=== PATIENT | female | born 1965 | race Hispanic/Latino ===

== ENCOUNTER 2017-06-28 22:41 | Emergency (ER) | payer MEDICAID, OTHER ==
[2017-06-28 22:45] VITALS: BP 151/106; PULSE 105; RESP 17; TEMP 98.2; O2SAT 96
--- NOTE | 2017-06-28 22:51 | ED PDOC ---
HPI: Back Time Seen by Provider: 06/28/17 22:50 Chief Complaint (Nursing): Back Pain Chief Complaint (Provider): leg pain, back pain History Per: Patient Additional Complaint(s): 52-year-old non-domiciled female presents to ED with bilateral leg pain and back pain ongoing for several years but worse in the past 2 weeks. Patient state she is in the process of making her way to [place]. This evening patient was on her way to the skilled nursing when she felt pain to legs and states that, "my legs gave out on me." Patient has been seen multiple times in past few days at [facility] ED's for same complaint as well as at [facility]. She states she has history of fibromyalgia and spinal stenosis. Upon arrival to ED, patient is able to walk but with pain. She denies any traumatic injury and denies any bowel or bladder dysfunction. PMD: none Past Medical History Reviewed: Historical Data, Nursing Documentation, Vital Signs Vital Signs: Last Vital Signs Temp 98.2 F 06/28/17 22:42 Pulse 105 H 06/28/17 22:42 Resp 17 06/28/17 22:42 BP 151/106 H 06/28/17 22:42 Pulse Ox 96 06/28/17 22:42 - Medical History PMH: Depression, Fibromyalgia, HTN - Family History Family History: States: No Known Family Hx - Living Arrangements Living Arrangements: Other (non-domiciled) - Home Medications Home Medications: Ambulatory Orders Medication Instructions Recorded Enalapril Maleate [Enalapril 5 mg PO BID 03/16/15 Maleate] Gabapentin [Neurontin] 100 mg PO TID #21 capsule 06/27/17 Cyclobenzaprine [Cyclobenzaprine 10 mg PO TID PRN #20 tab 06/28/17 HCl] Lidocaine 5% [Lidoderm] 1 each TP DAILY #10 patch 06/28/17 - Allergies Allergies/Adverse Reactions: Allergies Allergy/AdvReac Type Severity Reaction Status Date / Time latex Allergy ANAPHYLAXIS Verified 06/27/17 03:35 strawberry Allergy ANAPHYLAXIS Verified 06/27/17 03:35 Review of Systems ROS Statement: Except As Marked, All Systems Reviewed And Found Negative Constitutional: Negative for: Fever, Chills Cardiovascular: Negative for: Chest Pain Respiratory: Negative for: Cough Gastrointestinal: Negative for: Nausea, Vomiting Genitourinary Female: Negative for: Dysuria, Frequency, Incontinence, Hematuria Musculoskeletal: Positive for: Back Pain, Leg Pain, Other (history of chroni leg and back pain) Physical Exam - Reviewed Nursing Documentation Reviewed: Yes Vital Signs Reviewed: Yes - Physical Exam Appears: Positive for: Well, Non-toxic, No Acute Distress Skin: Negative for: Rash Eye Exam: Positive for: Normal appearance Neck: Positive for: Normal Cardiovascular/Chest: Positive for: Regular Rate, Rhythm Respiratory: Positive for: Normal Breath Sounds Gastrointestinal/Abdominal: Positive for: Soft. Negative for: Tenderness Back: Positive for: Vertebral Tenderness (lumbar region) Extremity: Positive for: Normal ROM Neurologic/Psych: Positive for: Alert, sheep killer II-XII (grossly intact), Oriented, Gait (stady). Negative for: Motor/Sensory Deficits - ECG O2 Sat by Pulse Oximetry: 96 Pulse Ox Interpretation: Normal Medical Decision Making Medical Decision Makin52 y/o with chronic leg and back pain Patient is ambulatory with steady gait to bathroom in ED Plan: IM toradol ordered but was refused by patient. She states she has seen at [facility] ED this morning and was given toradol but it did not work. PO tylenol and flexeril given. Patient was recently prescribed Neurontin, Lidoderm patch and Motrin for pain. Prescription provided for Flexeril. Patient was referred to on-call neurologist for follow-up. Disposition - Clinical Impression Clinical Impression: Chronic back pain, Chronic leg pain - Patient ED Disposition Is Patient to be Admitted: No Counseled Patient/Family Regarding: Diagnosis, Need For Followup, Rx Given - Disposition Referrals: Rebecca Conti MD [Medical Doctor] - Disposition: Routine/Home Disposition Time: 23:22 Condition: STABLE Additional Instructions: Take rx meds as directed. Follow up with neurologist. Prescriptions: Cyclobenzaprine [Cyclobenzaprine HCl] 10 mg PO TID PRN #20 tab PRN Reason: Muscle Spasm Instructions: Muscle and Bone Pain (DC), Chronic Pain Forms: [employer] (Korean)
== END 2017-06-29 00:13 | disposition home or self-care (01) ==
LOC: H.ER 22:41
DX: M54.9 Dorsalgia, unspecified (principal); M79.605 Pain in left leg; M79.604 Pain in right leg; G89.29 Other chronic pain; Z86.59 Personal history of other mental and behavioral disorders; I10 Essential (primary) hypertension; M48.00 Spinal stenosis, site unspecified; M79.7 Fibromyalgia

== ENCOUNTER 2017-06-29 02:00 | Emergency (ER) | payer OTHER ==
[2017-06-29 02:15] VITALS: O2SAT 98
--- NOTE | 2017-06-29 02:19 | ED PDOC ---
HPI: Back Time Seen by Provider: 06/29/17 02:07 Chief Complaint (Nursing): Lower Extremity Problem/Injury Chief Complaint (Provider): back pain, leg pain History Per: Patient History/Exam Limitations: no limitations Onset/Duration Of Symptoms: Days Previous Symptoms: Back Pain Exacerbating Factor(s): Turning, Movement Additional Complaint(s): 52 y/o female history of chronic back and bilateral leg pain/weakness brought in by EMS for evaluation of ongoing pain. Patient states every time she walks her legs feel like they have a "mind of their own" and feels like they may give out at any minute. Denies headache, dizziness, new trauma, leg swelling, bowel/ bladder incontinence, urinary symptoms. Past Medical History Reviewed: Historical Data, Nursing Documentation, Vital Signs Vital Signs: Last Vital Signs Temp 97.2 F L 06/29/17 02:12 Pulse 94 H 06/29/17 02:12 Resp 16 06/29/17 02:12 BP 192/89 H 06/29/17 02:12 Pulse Ox 98 06/29/17 02:12 - Medical History PMH: Depression, Fibromyalgia, HTN Denies: Chronic Kidney Disease - Surgical History Surgical History: Hernia Repair - Family History Family History: States: No Known Family Hx - Immunization History Hx Tetanus Toxoid Vaccination: No Hx Influenza Vaccination: No Hx Pneumococcal Vaccination: No - Home Medications Home Medications: Ambulatory Orders Medication Instructions Recorded Enalapril Maleate [Enalapril 5 mg PO BID 03/16/15 Maleate] Gabapentin [Neurontin] 100 mg PO TID #21 capsule 06/27/17 Cyclobenzaprine [Cyclobenzaprine 10 mg PO TID PRN #20 tab 06/28/17 HCl] Lidocaine 5% [Lidoderm] 1 each TP DAILY #10 patch 06/28/17 - Allergies Allergies/Adverse Reactions: Allergies Allergy/AdvReac Type Severity Reaction Status Date / Time latex Allergy ANAPHYLAXIS Verified 06/27/17 03:35 strawberry Allergy ANAPHYLAXIS Verified 06/27/17 03:35 Review of Systems ROS Statement: Except As Marked, All Systems Reviewed And Found Negative Musculoskeletal: Positive for: Back Pain, Leg Pain Physical Exam - Reviewed Nursing Documentation Reviewed: Yes Vital Signs Reviewed: Yes - Physical Exam Appears: Positive for: Well, Non-toxic, No Acute Distress Head Exam: Positive for: ATRAUMATIC, NORMAL INSPECTION, NORMOCEPHALIC Skin: Positive for: Normal Color Eye Exam: Positive for: Normal appearance ENT: Positive for: Normal ENT Inspection Cardiovascular/Chest: Positive for: Regular Rate, Rhythm Respiratory: Positive for: Normal Breath Sounds Gastrointestinal/Abdominal: Positive for: Normal Exam Back: Positive for: Muscle Spasm (bilateral lspine paravertebral tenderness). Negative for: L CVA Tenderness, R CVA Tenderness, Vertebral Tenderness, Decreased ROM Extremity: Positive for: Normal ROM Neurologic/Psych: Positive for: Alert, Oriented. Negative for: Motor/Sensory Deficits - ECG O2 Sat by Pulse Oximetry: 98 - Progress ED Course And Treament: Patient sleeping upon RN going in to room to administer medication. Chart reviewed: patient is nondomiciled, has had multiple visits between [facility], and [place] ED for same in the last 2 days, just discharged from here <3 hours ago. Highly suspicious for bed-seeking behavior On re-eval, patient ambulating about ED exam room, noted to be looking through IV cart by smelter charger walking by Patient stable for discharge Advised to fill prescriptions previously prescribed. Follow up as directed Return precautions given Disposition - Clinical Impression Clinical Impression: Chronic leg pain, Chronic back pain - Patient ED Disposition Is Patient to be Admitted: No Counseled Patient/Family Regarding: Diagnosis, Need For Followup - Disposition Disposition: Routine/Home Disposition Time: 03:54 Condition: IMPROVED Instructions: Chronic Pain (DC) Forms: [employer] (Cook Islander)
[2017-06-29 03:57] VITALS: BP 141/85; PULSE 84; RESP 17; TEMP 98.1
== END 2017-06-29 03:55 | disposition home or self-care (01) ==
LOC: H.ER 02:00
DX: G89.29 Other chronic pain (principal); F32.9 Major depressive disorder, single episode, unspecified; I10 Essential (primary) hypertension; M79.7 Fibromyalgia
CPT/HCPCS: 96372; 99283; J1885

== ENCOUNTER 2017-07-21 08:06 | Emergency (ER) | payer OTHER ==
[2017-07-21 08:22] VITALS: TEMP 98
--- NOTE | 2017-07-21 09:22 | ED PDOC ---
HPI: General Adult Time Seen by Provider: 07/21/17 09:13 Chief Complaint (Nursing): ENT Problem Chief Complaint (Provider): sore throat History Per: Patient History/Exam Limitations: no limitations Onset/Duration Of Symptoms: Days (1) Have you had recent travel within the past 21 days to any of the following countries: [place], [place], [place] or [place]?: No Current Symptoms Are (Timing): Still Present Severity: Moderate Additional Complaint(s): pt p/w + < 1 day onset of sore throat, with difficulty with swallowing solids; no drooling/voice changes; pt denied fever/chills/sweats, no cp/sob/palpitations , no abd pain, no n/v, no numbness/tingling, no urinary/bowel changes, no fall/ trauma/sick contact, no travel; pt also states she is dealing with right foot fungal infection and would like to have that looked at; pt states she is applying a cream and seems to be helping somewhat; pt denied other complaints; pt is here for further eval PCP: [facility] pt is currently a resident at a detention Past Medical History Reviewed: Historical Data, Nursing Documentation, Vital Signs Vital Signs: Last Vital Signs Temp 98 F 07/21/17 08:21 Pulse 87 07/21/17 08:21 Resp 16 07/21/17 08:21 BP 141/95 H 07/21/17 08:21 Pulse Ox 98 07/21/17 09:57 - Medical History PMH: Depression, Fibromyalgia, HTN Denies: Chronic Kidney Disease - Surgical History Surgical History: Hernia Repair - Family History Family History: States: No Known Family Hx - Living Arrangements Living Arrangements: Alone - Social History Current smoker - smoking cessation education provided: Yes Ex-Smoker (has not smoked in the last 12 months): No Alcohol: None Drugs: Denies - Immunization History Hx Tetanus Toxoid Vaccination: No Hx Influenza Vaccination: No Hx Pneumococcal Vaccination: No - Home Medications Home Medications: Ambulatory Orders Medication Instructions Recorded Enalapril Maleate [Enalapril 5 mg PO BID 03/16/15 Maleate] Gabapentin [Neurontin] 100 mg PO TID #21 capsule 06/27/17 Cyclobenzaprine [Cyclobenzaprine 10 mg PO TID PRN #20 tab 06/28/17 HCl] Lidocaine 5% [Lidoderm] 1 each TP DAILY #10 patch 06/28/17 Amoxicillin/Clavulanate [Augmentin 1 tab PO BID #13 tab 07/21/17 875 MG-125 MG] Ibuprofen [Motrin] 600 mg PO TID PRN #30 tab 07/21/17 Lidocaine 2% Viscous 10 ml MM QID PRN #100 ml 07/21/17 - Allergies Allergies/Adverse Reactions: Allergies Allergy/AdvReac Type Severity Reaction Status Date / Time latex Allergy ANAPHYLAXIS Verified 07/21/17 08:37 strawberry Allergy ANAPHYLAXIS Verified 07/21/17 08:37 Review of Systems ROS Statement: Except As Marked, All Systems Reviewed And Found Negative Constitutional: Negative for: Fever, Chills, Sweats, Weakness Eyes: Negative for: Pain ENT: Positive for: Throat Pain. Negative for: Ear Pain, Nose Discharge, Nose Congestion, Throat Swelling Cardiovascular: Negative for: Chest Pain, Palpitations, Orthopnea, Paroxysmal Noc. Dyspnea, Edema Respiratory: Negative for: Cough, Shortness of Breath, SOB with Exertion Gastrointestinal: Negative for: Nausea, Vomiting, Abdominal Pain, Constipation Genitourinary Female: Negative for: Dysuria, Frequency, Hematuria Musculoskeletal: Negative for: Neck Pain, Shoulder Pain, Back Pain Skin: Negative for: Rash Neurological: Negative for: Weakness, Headache Physical Exam - Reviewed Nursing Documentation Reviewed: Yes Vital Signs Reviewed: Yes (elevated BP) - Physical Exam Appears: Positive for: Well, Non-toxic, Uncomfortable Head Exam: Positive for: ATRAUMATIC, NORMAL INSPECTION, NORMOCEPHALIC Skin: Positive for: Normal Color (cap refill < 1sec, no ulcerations, no petechiae; note right foot plantar region dry somewhat scaly rashes are noted with regions of near circular blanched spots, NON indurated/tender/raised, non- bloody, NON-blister/non-vesicles/non-bullae; NO Nikosky's sign), Warm, Dry. Negative for: Jaundice, Cyanosis Eye Exam: Positive for: Normal appearance, EOMI, PERRL. Negative for: Nystagmus ENT: Positive for: Pharynx Is (diffuse erythema is noted, with faint exudate noted to left upper tonsiliar region; uvula/tongue are midline, intact dentitions), TM Is/Are (WNL; clear b/l), Other (no dysphonia, no drooling/ stridor, fair dentitions). Negative for: Nasal Congestion Neck: Positive for: Normal (no midline tenderness, no step off, no nuchal rigidity, no meningeal signs, no masses), Painless ROM, Supple, Trachea Midline. Negative for: Decreased ROM Cardiovascular/Chest: Positive for: Regular Rate, Rhythm, Chest Non Tender, Other (+S1, +S2). Negative for: Edema, Murmur Respiratory: Positive for: Normal Breath Sounds, Other (CTA b/l, no w/r/r, no tachypenia) Gastrointestinal/Abdominal: Positive for: Normal Exam, Bowel Sounds, Soft Back: Positive for: Normal Inspection. Negative for: Vertebral Tenderness Extremity: Positive for: Normal ROM, Other (+ weight bearing, + ambulatory) Neurologic/Psych: Positive for: Alert, research physician II-XII, Oriented - ECG O2 Sat by Pulse Oximetry: 98 Pulse Ox Interpretation: Normal - Progress ED Course And Treament: 10:30am pt is doing well pt is comfortable pt felt improved with the medications provided while in the ED pt is made aware of her medical results pt is encouraged smoking cessation pt is encouraged to drink plenty of fluids pt is encouraged to keep her feet dry/clean pt will f/u as directed pt will be discharged home Re-evaluation Time: 10:27 Condition: Improved Medical Decision Making Medical Decision Making: Impression: sore throat, foot infection (chronic) i have consider all the differential diagnosis regarding pt's chief medical complaints/clinical findings, including but are not limited to: r/o bacterial pharyngitis; foot infection A/P: sore throat, foot infection - rapid strept - supportive care - observe/reevaluation Disposition - Clinical Impression Clinical Impression: Sore throat, Elevated blood pressure reading, Fungal infection of foot - Patient ED Disposition Is Patient to be Admitted: No Counseled Patient/Family Regarding: Studies Performed, Diagnosis, Need For Followup, Rx Given - Disposition Referrals: PCP,NO [Non-Staff] - [facility] [Outside] [facility] [Outside] [facility] [Outside] [facility] [Outside] [facility] [Outside] Disposition: Routine/Home Disposition Time: 10:15 Condition: STABLE Additional Instructions: Make sure to see your doctor in 1-2 days DRINK PLENTY OF FLUIDS take your medications as prescribed STOP SMOKING keep your feet clean and dry, try wearing flip flops RETURN TO ED IF worse pain, cant breath, persistent vomiting, high fever >101- 102 for hours, altered behavior, slurr speech, facial changes, focal weakness ( arm/leg or both), unable to urinate, heavy/persistent bleeding, passing out, chest pain, or other medical emergencies Prescriptions: Amoxicillin/Clavulanate [Augmentin 875 MG-125 MG] 1 tab PO BID #13 tab Ibuprofen [Motrin] 600 mg PO TID PRN #30 tab PRN Reason: Pain, Mild (1-3) Lidocaine 2% Viscous 10 ml MM QID PRN #100 ml PRN Reason: Sore Throat Instructions: Sore Throat in Adults, Hypertension (ED), Athlete's Foot, High Blood Pressure (DC), Strep Throat (DC) Forms: [employer] (Pakistani) Print Language: CITIZEN OF [place]
[2017-07-21] MEDS ORDERED: Amoxicillin-Clav 875-125 mg Tab PO ONE ×2 (10:29→10:56)
[2017-07-21 11:00] VITALS: BP 138/66; PULSE 74; RESP 17; O2SAT 99
== END 2017-07-21 10:58 | disposition home or self-care (01) ==
LOC: H.ER 08:06
DX: J02.9 Acute pharyngitis, unspecified (principal); I10 Essential (primary) hypertension; B35.3 Tinea pedis; Z86.59 Personal history of other mental and behavioral disorders; F17.200 Nicotine dependence, unspecified, uncomplicated
CPT/HCPCS: 87070; 87430; 96372; 99282; J1885

== ENCOUNTER 2017-09-06 10:12 | Emergency (ER) | payer OTHER ==
[2017-09-06 12:29] LABS: BASO # 0.1 K/uL (0.0-0.2); BASO % 1.4 % (0.0-2.0); EOS # 0.1 K/uL (0.0-0.7); EOS % 1.3 % (0.0-4.0); HEMOGLOBIN 15.2 g/dL (12.0-16.0); LYMPH # 2.2 K/uL (1.0-4.3); LYMPH % 28.7 % (20.0-40.0); MEAN CELL VOLUME 90.3 fl (81.0-99.0); MEAN CORPUSCULAR HGB CONC 34.3 g/dL (33.0-37.0); MONO # 0.5 K/uL (0.0-0.8); MONO % 6.7 % (0.0-10.0); NEUT # 4.9 K/uL (1.8-7.0); NEUT % 61.9 % (50.0-75.0); NRBC % 0.1 % (0.0-0.0); RBC 4.91 Mil/uL (3.80-5.20); RED CELL DISTRIBUTION WIDTH 12.3 % (11.5-14.5); WHITE BLOOD COUNT 7.8 K/uL (4.8-10.8)
[2017-09-06 12:30] LABS: ALB/GLOB RATIO 1.7 (1.0-2.1); ALBUMIN 4.4 g/dL (3.5-5.0); ALT/SGPT 25 U/L (9-52); AST/SGOT 16 U/L (14-36); BLOOD UREA NITROGEN 23 mg/dl (7-17); CALCIUM 9.6 mg/dL (8.4-10.2); GFR AFRICAN-AMERICAN > 60; GFR NON-AFRICAN AMERICAN > 60
[2017-09-06 13:05] VITALS: BP 133/77; PULSE 67; RESP 18; TEMP 98.1; O2SAT 99
--- NOTE | 2017-09-06 13:29 | ED PDOC ---
Lower Extremity Pain/Injury Time Seen by Provider: 09/06/17 10:15 Chief Complaint (Nursing): Lower Extremity Problem/Injury Chief Complaint (Provider): Lower Extremity Problem/Injury History Per: Patient Onset/Duration Of Symptoms: Days (x4 years) Additional Complaint(s): Patient is an undomiciled 52 y/o female with history of HTN, fibromyalgia, and chronic leg weakness, who presents to the ED complaining of leg weakness. Patient states that these symptoms have been present for the past x4 years and during this time she has been to multiple ERs including [place], [facility], and [place]. which is not apparent on her given MR number*. She states she has had multiple out patient follow up appointments but has not followed up with them. She also states that her symptoms are always the same. She denies any fever, vomiting, abdominal pain, chest pain, or dizziness. She is requesting apple juice. NOTE: Refer to other chart. Patient's charts will eventually be merged together. MR number: [id number] PMD: Dr. Alston at [facility] Past Medical History Reviewed: Historical Data, Nursing Documentation, Vital Signs Vital Signs: Last Vital Signs Temp 98.1 F 09/06/17 13:05 Pulse 67 09/06/17 13:05 Resp 18 09/06/17 13:05 BP 133/77 09/06/17 13:05 Pulse Ox 99 09/06/17 13:05 - Medical History PMH: Fibromyalgia, HTN, Chronic Pain (chronic leg weakness) - Surgical History Surgical History: Hernia Repair - Family History Family History: States: Unknown Family Hx - Social History Current smoker - smoking cessation education provided: No Alcohol: None Drugs: Denies - Home Medications Home Medications: Ambulatory Orders Medication Instructions Recorded Enalapril Maleate [Enalapril 5 mg PO BID 03/16/15 Maleate] Gabapentin [Neurontin] 100 mg PO TID #21 capsule 06/27/17 Cyclobenzaprine [Cyclobenzaprine 10 mg PO TID PRN #20 tab 06/28/17 HCl] Lidocaine 5% [Lidoderm] 1 each TP DAILY #10 patch 06/28/17 Amoxicillin/Clavulanate [Augmentin 1 tab PO BID #13 tab 07/21/17 875 MG-125 MG] Ibuprofen [Motrin] 600 mg PO TID PRN #30 tab 07/21/17 Lidocaine 2% Viscous 10 ml MM QID PRN #100 ml 07/21/17 - Allergies Allergies/Adverse Reactions: Allergies Allergy/AdvReac Type Severity Reaction Status Date / Time latex Allergy ANAPHYLAXIS Verified 07/21/17 08:37 strawberry Allergy ANAPHYLAXIS Verified 07/21/17 08:37 Review of Systems ROS Statement: Except As Marked, All Systems Reviewed And Found Negative Constitutional: Negative for: Fever Cardiovascular: Negative for: Chest Pain Gastrointestinal: Negative for: Vomiting, Abdominal Pain Neurological: Positive for: Weakness (chronic leg). Negative for: Dizziness Physical Exam - Reviewed Nursing Documentation Reviewed: Yes Vital Signs Reviewed: Yes - Physical Exam Appears: Positive for: No Acute Distress (poor hygiene, undomicile) Head Exam: Positive for: ATRAUMATIC, NORMOCEPHALIC Skin: Positive for: Normal Color, Warm, Dry Eye Exam: Positive for: EOMI, Normal appearance, PERRL ENT: Positive for: Normal ENT Inspection Neck: Positive for: Normal, Painless ROM, Supple Cardiovascular/Chest: Positive for: Regular Rate, Rhythm. Negative for: Murmur Respiratory: Positive for: Normal Breath Sounds. Negative for: Respiratory Distress Gastrointestinal/Abdominal: Positive for: Normal Exam, Soft. Negative for: Tenderness Back: Positive for: Normal Inspection Extremity: Positive for: Normal ROM. Negative for: Pedal Edema, Deformity Neurologic/Psych: Positive for: Alert, Oriented (x3), Motor/Sensory Deficits ( bilateral lower extremity weakness; upper extremities are normal), Gait ( ambulates with limp, uses cane) - Laboratory Results Result Diagrams: 09/06/17 11:21 09/06/17 11:21 - ECG O2 Sat by Pulse Oximetry: 99 (RA) Pulse Ox Interpretation: Normal Medical Decision Making Medical Decision Making: Time: 13:00 Initial Impression: Undomiciled woman with chronic lower extremity weakness Initial Plan: --Refer to Neurology for further work up of chronic symptoms. Patient has seen neurologist Dr. Cain before and will either meet again or with another neurologist. Time: 14:13 --Patient is medically stable for discharge. Patient has a PMD at [facility] and an appointment at 16:30 tomorrow, appropriate instructions given to patient. ----- Scribe Attestation: Documented by Fidel An, acting as a scribe for Walter Dunham MD. Provider Scribe Attestation: All medical record entries made by the Scribe were at my direction and personally dictated by me. I have reviewed the chart and agree that the record accurately reflects my personal performance of the history, physical exam, medical decision making, and the department course for this patient. I have also personally directed, reviewed, and agree with the discharge instructions and disposition. Disposition - Clinical Impression Clinical Impression: Bilateral leg weakness - Patient ED Disposition Is Patient to be Admitted: No Counseled Patient/Family Regarding: Studies Performed, Diagnosis, Need For Followup - Disposition Referrals: [facility] [Outside] [facility] [Outside] Hunter Cain MD [Staff Provider] - Rebecca Conti MD [Medical Doctor] - Disposition: Routine/Home Disposition Time: 14:05 Condition: IMPROVED Additional Instructions: follow up with your primary doctor/neurologist in 1-2 days return to the ED with any worsening or concerning symptoms Instructions: Weakness (ED) Forms: [employer] (Slovenian)
== END 2017-09-06 14:23 | disposition home or self-care (01) ==
LOC: H.ER 10:12 → MERGE 10:12 → H.ER 14:23
DX: M62.81 Muscle weakness (generalized) (principal); G89.29 Other chronic pain; I10 Essential (primary) hypertension; M79.7 Fibromyalgia

== ENCOUNTER 2017-09-12 10:20 | Emergency (ER) | payer OTHER ==
[2017-09-12 10:26] VITALS: TEMP 98.2
--- NOTE | 2017-09-12 11:36 | ED PDOC ---
Upper Extremity Pain/Injury Time Seen by Provider: 09/12/17 10:57 Chief Complaint (Nursing): Upper Extremity Problem/Injury Chief Complaint (Provider): Left arm and shoulder pain History Per: Patient History/Exam Limitations: no limitations Quality: Aching Pain Scale Rating Of: 8 Additional Complaint(s): Leilani Vora is a 52 year old female, with a past medical history of HTN, who presents to the emergency department for evaluation of left arm and shoulder pain onset at 09:45 today. Patient reports she had a 10 min episode of an 8/10 sharp, aching pain to the entire extremity. She states it resolved spontaneously but expresses concern due to family history of heart disease and [place], which prompted ED visit. Patient denies any symptoms at present. She denies any chest pain during the episode or currently; she also denies shortness of breath, nausea, vomit, diarrhea, abdominal pain, fever or chills. Of note patient was recently seen in the ED on 09/06/17 for b/l lower extremity pain and weakness. Patient states she followed up with [facility] on 09/07/17 and has a neurology appointment coming up with Dr. Cain. LMP 4 years ago PMD: Dr. Alston Neuro: Dr. Cain. Past Medical History Reviewed: Historical Data, Nursing Documentation, Vital Signs Vital Signs: Last Vital Signs Temp 98.2 F 09/12/17 10:25 Pulse 84 09/12/17 10:25 Resp 19 09/12/17 10:25 BP 135/88 09/12/17 10:25 Pulse Ox 98 09/12/17 10:25 - Medical History PMH: Depression, Fibromyalgia, HTN, Chronic Pain (chronic leg weakness) - Surgical History Surgical History: Hernia Repair Other surgeries: eye procedure - Family History Family History: States: Unknown Family Hx - Social History Current smoker - smoking cessation education provided: Yes (half a pack per day) Alcohol: None Drugs: Denies - Home Medications Home Medications: Ambulatory Orders Medication Instructions Recorded Enalapril Maleate [Enalapril 5 mg PO BID 03/16/15 Maleate] Gabapentin [Neurontin] 100 mg PO TID #21 capsule 06/27/17 Cyclobenzaprine [Cyclobenzaprine 10 mg PO TID PRN #20 tab 06/28/17 HCl] Lidocaine 5% [Lidoderm] 1 each TP DAILY #10 patch 06/28/17 Amoxicillin/Clavulanate [Augmentin 1 tab PO BID #13 tab 07/21/17 875 MG-125 MG] Ibuprofen [Motrin] 600 mg PO TID PRN #30 tab 07/21/17 Lidocaine 2% Viscous 10 ml MM QID PRN #100 ml 07/21/17 Acetaminophen [Acetaminophen 8 650 mg PO Q8 PRN #24 tablet.er 09/12/17 Hour] Meloxicam [Mobic] 15 mg PO DAILY PRN #10 tab 09/12/17 - Allergies Allergies/Adverse Reactions: Allergies Allergy/AdvReac Type Severity Reaction Status Date / Time latex Allergy ANAPHYLAXIS Verified 09/12/17 10:35 strawberry Allergy ANAPHYLAXIS Verified 07/21/17 08:37 Review of Systems ROS Statement: Except As Marked, All Systems Reviewed And Found Negative Constitutional: Negative for: Fever, Chills Cardiovascular: Negative for: Chest Pain Respiratory: Negative for: Shortness of Breath Gastrointestinal: Negative for: Nausea, Vomiting, Abdominal Pain, Diarrhea Musculoskeletal: Positive for: Shoulder Pain (left), Arm Pain (left) Physical Exam - Reviewed Nursing Documentation Reviewed: Yes Vital Signs Reviewed: Yes - Physical Exam Comments: GENERAL APPEARANCE: Patient is awake, alert, oriented x 3, in no acute distress. Resting comfortably. SKIN: Warm, dry; (-) cyanosis. (-) Rash. EYES: (-) conjunctival pallor. ENMT: Mucous membranes moist. Airway patent, (-) stridor. NECK: Supple, FROM (-) tenderness, (-) stiffness, (-) lymphadenopathy. CHEST AND RESPIRATORY: (-) rash, (-) chest wall tenderness. Lungs: (-) rales , (-) rhonchi, (-) wheezes, (-) rub; breath sounds equal bilaterally. Respirations even and nonlabored, speaking in full sentences. HEART AND CARDIOVASCULAR: (-) irregularity; (-) murmur, (-) gallop, (-) rub. ABDOMEN AND GI: Soft; (-) distention, (-) tenderness, (-) guarding (-) rebound EXTREMITIES: Full ROM of bilateral upper extremities, (-) Tenderness, (-) effusion, (-) erythema (-) deformity. (-)pedal edema, (-) calf tenderness (+) distal pulses. Sensation intact throughout. NEURO AND PSYCH: Mental status as above. Cranial nerves grossly intact; strength symmetric. Speech clear, gait steady. (-) facial asymmetry (-) focal deficit. - Laboratory Results Result Diagrams: 09/12/17 11:26 09/12/17 11:26 - ECG O2 Sat by Pulse Oximetry: 98 (RA) Pulse Ox Interpretation: Normal Medical Decision Making Medical Decision Making: Time: 10:57 Initial Impression: acute arm pain, likely musculoskeletal Initial plan: --EKG --BMP --Troponin I --CBC w/ differential --Reevaluation EKG: NSR @ 71bpm, no ST elevations, QTc 443 1200 Labs reviewed and grossly unremarkable. H&H stable. Troponin < 0.01. 1210 On re-evaluation, patient offers no complaints and denies any chest pain, arm pain, SOB. On exam, patient remains AAOx3, in no acute distress. Lungs clear to auscultation, cardiac RRR, abdomen soft, non-tender, repeat neuro exam shows no focal findings. VSS, stable for discharge. Lab/Diagnostic results d/w the patient in great detail. Diagnosis of acute arm pain, likely musculoskeletal d/w the patient. Based on history, exam and diagnostic results, plan will be for outpatient follow up. Patient instructed to follow-up with pmd / referral provided / the clinic in 1- 2 days without fail. Advised to take medication as prescribed. Return to the emergency room at any time for any new or worsening symptoms. Patient states she fully agrees with and understands discharge instructions. States that she agrees with the plan and disposition. Verbalized and repeated discharge instructions and plan. I have given the patient opportunity to ask any additional questions. Scribe Attestation: Documented by Dante Lopez, acting as a scribe for Paola Obrien PA-C. Provider Scribe Attestation: All medical record entries made by the Scribe were at my direction and personally dictated by me. I have reviewed the chart and agree that the record accurately reflects my personal performance of the history, physical exam, medical decision making, and the department course for this patient. I have also personally directed, reviewed, and agree with the discharge instructions and disposition. Disposition - Clinical Impression Clinical Impression: Musculoskeletal arm pain - Patient ED Disposition Is Patient to be Admitted: No Counseled Patient/Family Regarding: Studies Performed, Diagnosis, Need For Followup, Rx Given - Disposition Referrals: [facility] [Outside] Disposition: Routine/Home Disposition Time: 12:11 Condition: STABLE Additional Instructions: FOLLOW UP WITH CLINIC/PMD FOR FURTHER EVALUATION. RETURN TO ED WITH ANY NEW OR WORSENING SYMPTOMS. Prescriptions: Acetaminophen [Acetaminophen 8 Hour] 650 mg PO Q8 PRN #24 tablet.er PRN Reason: Pain, Moderate (4-7) Meloxicam [Mobic] 15 mg PO DAILY PRN #10 tab PRN Reason: Pain, Severe (8-10) Instructions: Muscle and Bone Pain (DC) Forms: [email or web address] (Tajik) Print Language: ROMANIAN - POA Present On Arrival: None Results - Lab Results Lab Results: 09/12/17 09/12/17 11:26 11:26 WBC 7.3 RBC 4.62 Hgb 14.4 Hct 42.0 MCV 91.0 MCH 31.2 H MCHC 34.3 RDW 12.5 Plt Count 248 MPV 9.2 Neut % (Auto) 60.9 Lymph % (Auto) 29.1 Hickman % (Auto) 7.9 Eos % (Auto) 0.8 Baso % (Auto) 1.3 Neut # (Auto) 4.5 Lymph # (Auto) 2.1 Hickman # (Auto) 0.6 Eos # (Auto) 0.1 Baso # (Auto) 0.1 Sodium 140 Potassium 3.7 Chloride 102 Carbon Dioxide 27 Anion Gap 15 BUN 16 Creatinine 0.7 Est GFR ( Amer) > 60 Est GFR (Non-Af Amer) > 60 Random Glucose 109 H Calcium 9.1 Troponin I < 0.0120
[2017-09-12 11:43] LABS: BASO # 0.1 K/uL (0.0-0.2); BASO % 1.3 % (0.0-2.0); EOS # 0.1 K/uL (0.0-0.7); EOS % 0.8 % (0.0-4.0); HEMOGLOBIN 14.4 g/dL (12.0-16.0); LYMPH # 2.1 K/uL (1.0-4.3); LYMPH % 29.1 % (20.0-40.0); MEAN CORPUSCULAR HEMOGLOBIN 31.2 pg (27.0-31.0); MEAN CORPUSCULAR HGB CONC 34.3 g/dL (33.0-37.0); MEAN PLATELET VOLUME 9.2 fl (7.2-11.7); MONO # 0.6 K/uL (0.0-0.8); MONO % 7.9 % (0.0-10.0); NEUT # 4.5 K/uL (1.8-7.0); NEUT % 60.9 % (50.0-75.0); NRBC % 0.1 % (0.0-0.0); RBC 4.62 Mil/uL (3.80-5.20); RED CELL DISTRIBUTION WIDTH 12.5 % (11.5-14.5); WHITE BLOOD COUNT 7.3 K/uL (4.8-10.8)
[2017-09-12 11:44] LABS: BLOOD UREA NITROGEN 16 mg/dl (7-17); CALCIUM 9.1 mg/dL (8.4-10.2); GFR AFRICAN-AMERICAN > 60; GFR NON-AFRICAN AMERICAN > 60
[2017-09-12 12:21] VITALS: BP 121/76; PULSE 69; RESP 18
--- NOTE | 2017-09-13 15:12 | CARD ---
APPROVED REPORT Date of service: 09/12/2017 EKG Measurement Heart [id number] VT 130P40 [id number] <Conclusion> Normal sinus rhythm Normal ECG
[2017-09-14 03:58] VITALS: O2SAT 98
== END 2017-09-12 12:24 | disposition home or self-care (01) ==
LOC: H.ER 10:20
DX: M79.602 Pain in left arm (principal); G89.29 Other chronic pain; I10 Essential (primary) hypertension; M79.7 Fibromyalgia

== ENCOUNTER 2018-02-27 18:23 | Emergency (ER) | payer OTHER, MEDICAID ==
[2018-02-27 18:35] VITALS: BP 150/83; PULSE 98; RESP 16; TEMP 98; O2SAT 98
--- NOTE | 2018-02-27 19:32 | ED PDOC ---
HPI: CCC, URI, Sore Throat Time Seen by Provider: 02/27/18 19:21 Chief Complaint (Nursing): Weakness/Neurological Deficit Chief Complaint (Provider): Cough, fever, weakness History Per: Patient History/Exam Limitations: no limitations Onset/Duration Of Symptoms: Days Current Symptoms Are (Timing): Still Present Additional Complaint(s): 52 year old female presents to the ED for an evaluation for fever and cough. She lives in a [place] [facility] and uses a [facility] as advised by her neurologist, Dr. Tompkins. Also reports of generalized weakness and she smokes cigarettes. PMD: Non CP Provider Past Medical History Reviewed: Historical Data, Nursing Documentation, Vital Signs Vital Signs: Last Vital Signs Temp 98 F 02/27/18 18:33 Pulse 98 H 02/27/18 18:33 Resp 16 02/27/18 18:33 BP 150/83 02/27/18 18:33 Pulse Ox 98 02/27/18 18:33 - Medical History PMH: Depression, Fibromyalgia, HTN, Chronic Pain (chronic leg weakness) Denies: Chronic Kidney Disease - Surgical History Surgical History: Hernia Repair - Family History Family History: States: Unknown Family Hx - Social History Current smoker - smoking cessation education provided: Yes - Immunization History Hx Tetanus Toxoid Vaccination: No Hx Influenza Vaccination: No Hx Pneumococcal Vaccination: No - Home Medications Home Medications: Ambulatory Orders Medication Instructions Recorded Enalapril Maleate 5 mg PO BID 03/16/15 Gabapentin [Neurontin] 100 mg PO TID #21 capsule 06/27/17 Cyclobenzaprine [Cyclobenzaprine 10 mg PO TID PRN #20 tab 06/28/17 HCl] Lidocaine 5% [Lidoderm] 1 each TP DAILY #10 patch 06/28/17 Amoxicillin/Clavulanate [Augmentin 1 tab PO BID #13 tab 07/21/17 875 MG-125 MG] Ibuprofen [Motrin] 600 mg PO TID PRN #30 tab 07/21/17 Lidocaine 2% Viscous 10 ml MM QID PRN #100 ml 07/21/17 Acetaminophen [Acetaminophen 8 650 mg PO Q8 PRN #24 tablet.er 09/12/17 Hour] Meloxicam [Mobic] 15 mg PO DAILY PRN #10 tab 09/12/17 - Allergies Allergies/Adverse Reactions: Allergies Allergy/AdvReac Type Severity Reaction Status Date / Time latex Allergy ANAPHYLAXIS Verified 02/27/18 18:31 strawberry Allergy ANAPHYLAXIS Verified 02/27/18 18:31 Review of Systems ROS Statement: Except As Marked, All Systems Reviewed And Found Negative Constitutional: Positive for: Fever, Weakness Respiratory: Positive for: Cough Physical Exam - Reviewed Nursing Documentation Reviewed: Yes Vital Signs Reviewed: Yes - Physical Exam Appears: Positive for: Non-toxic, No Acute Distress Head Exam: Positive for: ATRAUMATIC, NORMAL INSPECTION, NORMOCEPHALIC Skin: Positive for: Normal Color, Warm, Dry. Negative for: Rash Eye Exam: Positive for: Normal appearance ENT: Positive for: Normal ENT Inspection. Negative for: Pharyngeal Erythema, Tonsillar Exudate, Tonsillar Swelling Cardiovascular/Chest: Positive for: Regular Rate, Rhythm. Negative for: Murmur Respiratory: Positive for: Wheezing (wheezing of bilateral upper lobes and lower lobes are clear) Neurologic/Psych: Positive for: Alert, Oriented (x3) - ECG O2 Sat by Pulse Oximetry: 98 (RA) Pulse Ox Interpretation: Normal Medical Decision Making Medical Decision Making: Time: 1931 Initial Impression: cough, weakness, fever Initial Plan: CMP Troponin I CBC w/ Differential Chest Two Views Influenza A B Rapid Strep Urinalysis Reevaluation Pt has refused any diagnostic procedure or test including a urinalysis and has refused IV fluids for dehydration. The patient has indicated that she does not desire medical treatment from this facility and desires to leave. As she is stable for release, she will be discharged for failure to consent to treatment. --------- Scribe Attestation: Documented by Jennie Manzo, acting as a scribe for Rolf Wilder PA-C. Provider Scribe Attestation: All medical record entries made by the Scribe were at my direction and personally dictated by me. I have reviewed the chart and agree that the record accurately reflects my personal performance of the history, physical exam, medical decision making, and the department course for this patient. I have also personally directed, reviewed, and agree with the discharge instructions and disposition. Disposition - Clinical Impression Clinical Impression: Episode of generalized weakness - Patient ED Disposition Is Patient to be Admitted: No Counseled Patient/Family Regarding: Studies Performed, Diagnosis - Disposition Disposition: Left W/O Treatment Disposition Time: 20:43 Condition: STABLE Instructions: Weakness (ED) Forms: [employer] (Kazakh)
[2018-02-27] MEDS ORDERED: Sodium Chloride 0.9% 1,000 ML IV SCH (19:45)
[2018-02-27 20:47] LABS: BASO # 0.1 K/uL (0.0-0.2); BASO % 0.7 % (0.0-2.0); EOS % 0.1 % (0.0-4.0); HEMOGLOBIN 14.8 g/dL (12.0-16.0); LYMPH % 9.6 % (20.0-40.0); MEAN CELL VOLUME 94.7 fl (81.0-99.0); MEAN CORPUSCULAR HEMOGLOBIN 31.6 pg (27.0-31.0); MEAN CORPUSCULAR HGB CONC 33.3 g/dL (33.0-37.0); MONO # 0.7 K/uL (0.0-0.8); MONO % 6.8 % (0.0-10.0); NEUT # 8.2 K/uL (1.8-7.0); NEUT % 82.8 % (50.0-75.0); NRBC % 0.1 % (0.0-0.0); PLATELET COUNT 224 K/uL (130-400); RBC 4.69 Mil/uL (3.80-5.20); RED CELL DISTRIBUTION WIDTH 12.4 % (11.5-14.5); WHITE BLOOD COUNT 9.9 K/uL (4.8-10.8)
[2018-02-27 21:12] LABS: BASOPHIL 1 % (0-2); LYMPHOCYTE 9 % (20-50); PLATELET ESTIMATE NORMAL (NORMAL); TOTAL CELLS COUNTED 100
[2018-02-27 21:13] LABS: MONOCYTE 5 % (0-10); NEUTROPHIL 85 % (42-75)
== END 2018-02-27 21:27 | disposition home or self-care (01) ==
LOC: H.ER 18:23
DX: M62.81 Muscle weakness (generalized) (principal); F17.210 Nicotine dependence, cigarettes, uncomplicated; M79.7 Fibromyalgia

== ENCOUNTER 2018-02-28 09:19 | Inpatient (IN) | payer MEDICAID, OTHER ==
[2018-02-28] MEDS ORDERED: Sodium Chloride 0.9% 1,000 ML IV STA (09:43)
[2018-02-28] MEDS ORDERED: Sodium Chloride 0.9% 1,000 ML IV SCH (09:45)
--- NOTE | 2018-02-28 09:50 | ED PDOC ---
HPI: Altered Mental Status Time Seen by Provider: 02/28/18 09:31 Chief Complaint (Nursing): Altered Mental Status Chief Complaint (Provider): Altered Mental Status History Per: EMS History/Exam Limitations: Clinical Condition Description Of Symptoms: Confused Additional Complaint(s): 52 y/o female with history of MS, depression, hypertension and fibromyalgia brought in by EMS for evaluation. Patient has trouble communicating to say what brought her to the ER. PMD: non provided NIHSS Stroke Scale - Date/Time Evaluation Performed Date Performed: 02/28/18 Time Performed: 09:30 When Was NIHSS Performed: Baseline - How Severe is the Stroke Level of Consciousness: 1=Drowsy LOC to Questions: 1=One correct LOC to commands: 1=Obeys one correctly Visual: 0=No visual loss Facial: 0=Normal Motor Arm - Left: 0=No drift Motor Arm - Right: 0=No drift Motor Leg - Left: 0=No drift Motor Leg - Right: 0=No drift Limb Ataxia: 0=Absent Sensory: 0=Normal Best Language: 1=Mild to moderate aphasia Dysarthia: 0=Normal articulation Extinction & Inattention (Neglect): 0=Normal, no object rTPA Inclusion/Exclusion - Refusal of Treatment Patient Refused Treatment: No - Inclusion Criteria for Altepase Patient is 18 years or Older: Yes Clinical DX Ischemic Stroke Cause Neurological Deficit: No Time of Onset Established Less Than 270 Mins Before TX Begin: No Risk/Benefit Discussed With Patient/Family Member Present: No - Exclusion Criteria for Altepase Uncontrolled Hypertension at Time of TX (SBP>185 or DBP>110): No Past Medical History Reviewed: Historical Data (per recors), Nursing Documentation, Vital Signs Vital Signs: Last Vital Signs Temp 100.9 F H 02/28/18 09:23 Pulse 96 H 02/28/18 09:23 Resp 18 02/28/18 09:23 BP 148/87 02/28/18 09:23 Pulse Ox 96 02/28/18 09:23 - Medical History PMH: Depression, Fibromyalgia, HTN, Chronic Pain (chronic leg weakness) Denies: Chronic Kidney Disease - Surgical History Surgical History: Hernia Repair - Family History Family History: States: Unknown Family Hx - Social History Current smoker - smoking cessation education provided: Yes - Immunization History Hx Tetanus Toxoid Vaccination: No Hx Influenza Vaccination: No Hx Pneumococcal Vaccination: No - Home Medications Home Medications: Ambulatory Orders Medication Instructions Recorded Enalapril Maleate [Vasotec] 5 mg PO DAILY 03/01/18 Gabapentin [Neurontin] 300 mg PO BID 03/01/18 - Allergies Allergies/Adverse Reactions: Allergies Allergy/AdvReac Type Severity Reaction Status Date / Time latex Allergy ANAPHYLAXIS Verified 02/27/18 18:31 strawberry Allergy ANAPHYLAXIS Verified 02/27/18 18:31 Review of Systems Review Of Systems: ROS cannot be obtained secondary to pt's inabilty to answer questions. Physical Exam - Reviewed Nursing Documentation Reviewed: Yes Vital Signs Reviewed: Yes - Physical Exam Appears: Positive for: No Acute Distress Head Exam: Positive for: ATRAUMATIC, NORMOCEPHALIC Skin: Positive for: Normal Color Eye Exam: Positive for: Normal appearance ENT: Positive for: Normal ENT Inspection Neck: Positive for: Normal Cardiovascular/Chest: Positive for: Regular Rate, Rhythm Respiratory: Positive for: Normal Breath Sounds Gastrointestinal/Abdominal: Positive for: Normal Exam Extremity: Positive for: Normal ROM (able to lift both arms and legs), Capillary Refill (less than 2 s). Negative for: Swelling Neurologic/Psych: Positive for: directory assistance operator II-XII, Oriented (x1), Aphasia, Other (confused). Negative for: Alert - Laboratory Results Result Diagrams: 03/01/18 05:45 03/01/18 05:45 - ECG O2 Sat by Pulse Oximetry: 96 (RA) Pulse Ox Interpretation: Normal Medical Decision Making Medical Decision Making: Time: 933 Initial Plan: AMS, RULE OUT INFECTION, INTRACRANILA BLEED OR STROKE --Type and screen --VBG Shock panel --CT Head w/o contrast --EKG --CMP --Hemoglobin --Lipid panel --Troponin --CBC --PTT/PT --Chest x-ray --Tylenol 325 mg PO --Influenza A B --Stroke Team Consult upon review of the chart, pt was here the other day in the ER for cough congestion and left before treatment completion. 0958 Dr. Castellano radiology called and states head CT is negative Accu-check is [address] FINDINGS: HEMORRHAGE: No intracranial hemorrhage. BRAIN: No mass effect or edema. Moderate atrophy slightly greater than expected for patient age. Moderate patchy periventricular and deep/subcortical white matter lucency consistent with chronic microvascular ischemic change. No evidence of acute infarct. VENTRICLES: Unremarkable. No hydrocephalus. CALVARIUM: Unremarkable. PARANASAL SINUSES: Chronic ethmoid sinusitis. MASTOID AIR CELLS: Unremarkable as visualized. No inflammatory changes. OTHER FINDINGS: None. IMPRESSION: No evidence of acute infarct. No intracranial hemorrhage. Chronic white matter ischemic change. Chronic ethmoid sinusitis. The findings in this examination were discussed by telephone with Dr. Hickey at 9:57 a.m. on 02/28/2018. 1012 Dr. Conti, hospital neurologist, aware of case and states it is most likely sepsis not a stroke and patient is not a TPA candidate. she states no need to give ASA at this time. 1235 CXR FINDINGS: LUNGS: No active pulmonary disease. PLEURA: No significant pleural effusion identified, no pneumothorax apparent. CARDIOVASCULAR: No atherosclerotic calcification present Normal. OSSEOUS STRUCTURES: No significant abnormalities. VISUALIZED UPPER ABDOMEN: Normal. OTHER FINDINGS: None. IMPRESSION: No active disease. 1430 Dr. Conti saw patient at bedside and recommends obtaining MRI of brain w contrast. 1701 MRI brain read and reviewed by radiologist: FINDINGS: HEMORRHAGE: None DWI: No evidence of an acute or early subacute infarction. BRAIN PARENCHYMA: Are multifocal T2/FLAIR hyperintense lesion in the subcortical, deep and periventricular white matter. The periventricular lesions are perpendicular in orientation and round as well as ovoid in shape. There is no mass, mass effect or abnormal extra-axial fluid collection. Midline sagittal structures are normal. ENHANCEMENT: No abnormal intracranial enhancement. VENTRICLES: There is mild age advanced global parenchymal volume loss and proportionate enlargement of the ventricles and cortical sulci. CRANIUM: There is normal bone marrow signal pattern. ORBITS: Grossly unremarkable. PARANASAL SINUSES/MASTOIDS: There is moderate mucosal thickening in the paranasal sinuses. The mastoid air cells are predominantly clear. VASCULAR SYSTEM: There are normal signal voids in the larger intracranial arteries. OTHER FINDINGS: None . IMPRESSION: 1. No acute intracranial abnormality. 2. Moderate supratentorial white matter changes are nonspecific however concerning for demyelinating disease including multiple sclerosis. No evidence for active demyelination. The other differential considerations include severe chronic microangiopathic changes, vasculitis and Lyme disease. Clinical follow-up is advised. 3. Mild age advanced global parenchymal volume loss. 4. Chronic pansinusitis. 17:45 MRI discussed with Gallito. she thinks its Probable MS flare (not meningitis, she thinks workup is sufficient). Patient will be admitted to telemetry. 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 on reevaluation of patient she is more awake and alert. pt denies any complaints. no headache or dizziness. UA , cxr negative flu swab negative but will treat as there is high false negative rate. Scribe Attestation: Documented by Katherine Bill, acting as a scribe for Walter Dunham MD. Provider Scribe Attestation: All medical record entries made by the Scribe were at my direction and person ally dictated by me. I have reviewed the chart and agree that the record accurately reflects my personal performance of the history, physical exam, medical decision making, and the department course for this patient. I have also personally directed, reviewed, and agree with the discharge instructions and disposition. Disposition - Clinical Impression Clinical Impression: Altered mental status - Patient ED Disposition Is Patient to be Admitted: Yes Counseled Patient/Family Regarding: Studies Performed, Diagnosis - Disposition Disposition Time: 15:00 Condition: STABLE
[2018-02-28 09:51] LABS: BASO % 0.4 % (0.0-2.0); EOS % 0.1 % (0.0-4.0); HEMOGLOBIN 14.8 g/dL (12.0-16.0); LYMPH # 0.2 K/uL (1.0-4.3); LYMPH % 2.7 % (20.0-40.0); MEAN CELL VOLUME 90.8 fl (81.0-99.0); MEAN CORPUSCULAR HEMOGLOBIN 30.8 pg (27.0-31.0); MEAN PLATELET VOLUME 8.8 fl (7.2-11.7); MONO # 0.5 K/uL (0.0-0.8); MONO % 5.6 % (0.0-10.0); NEUT % 91.2 % (50.0-75.0); PLATELET COUNT 222 K/uL (130-400); RBC 4.81 Mil/uL (3.80-5.20); RED CELL DISTRIBUTION WIDTH 12.4 % (11.5-14.5); WHITE BLOOD COUNT 8.8 K/uL (4.8-10.8)
[2018-02-28 09:57] LABS: INR 1.1; PROTHROMBIN TIME 12.5 Seconds (9.8-13.1)
[2018-02-28 10:00] LABS: PARTIAL THROMBOPLASTIN TIME 35.1 Seconds (25.6-37.1)
--- NOTE | 2018-02-28 10:02 | CT ---
Date of service: 02/28/2018 PROCEDURE: CT HEAD WITHOUT CONTRAST. HISTORY: code stroke COMPARISON: None available. TECHNIQUE: Axial computed tomography images were obtained through the head/brain without intravenous contrast. Radiation dose: Total exam DLP = 1149.53 mGy-cm. This CT exam was performed using one or more of the following dose reduction techniques: Automated exposure control, adjustment of the mA and/or kV according to patient size, and/or use of iterative reconstruction technique. FINDINGS: HEMORRHAGE: No intracranial hemorrhage. BRAIN: No mass effect or edema. Moderate atrophy slightly greater than expected for patient age. Moderate patchy periventricular and deep/subcortical white matter lucency consistent with chronic microvascular ischemic change. No evidence of acute infarct. VENTRICLES: Unremarkable. No hydrocephalus. CALVARIUM: Unremarkable. PARANASAL SINUSES: Chronic ethmoid sinusitis. MASTOID AIR CELLS: Unremarkable as visualized. No inflammatory changes. OTHER FINDINGS: None. IMPRESSION: No evidence of acute infarct. No intracranial hemorrhage. Chronic white matter ischemic change. Chronic ethmoid sinusitis. The findings in this examination were discussed by telephone with Dr. Hickey at 9:57 a.m. on 02/28/2018.
[2018-02-28 10:11] LABS: ALB/GLOB RATIO 1.5 (1.0-2.1); ALBUMIN 4.5 g/dL (3.5-5.0); ALT/SGPT 22 U/L (9-52); AST/SGOT 17 U/L (14-36); BLOOD UREA NITROGEN 27 mg/dl (7-17); CALCIUM 9.5 mg/dL (8.4-10.2); GFR NON-AFRICAN AMERICAN > 60; HDL CHOLESTEROL 57 MG/DL (30-70)
[2018-02-28 10:21] LABS: LDL CHOLESTEROL 118 mg/dL (0-129)
[2018-02-28 10:23] LABS: VENOUS BLOOD GAS BASE EXCESS 0.8 mmol/L (0.0-2.0); VENOUS BLOOD GAS PCO2 43 mmHg (40-60); VENOUS BLOOD GAS PO2 29 mm/Hg (30-55); VENOUS BLOOD PH 7.39 (7.32-7.43)
[2018-02-28 11:23] LABS: LYMPHOCYTE 6 % (20-50); MONOCYTE 8 % (0-10); NEUTROPHIL 86 % (42-75); PLATELET ESTIMATE NORMAL (NORMAL); TOTAL CELLS COUNTED 100
--- NOTE | 2018-02-28 12:39 | RAD ---
Date of service: 02/28/2018 HISTORY: Code Stroke COMPARISON: No prior. FINDINGS: LUNGS: No active pulmonary disease. PLEURA: No significant pleural effusion identified, no pneumothorax apparent. CARDIOVASCULAR: No atherosclerotic calcification present Normal. OSSEOUS STRUCTURES: No significant abnormalities. VISUALIZED UPPER ABDOMEN: Normal. OTHER FINDINGS: None. IMPRESSION: No active disease.
[2018-02-28 12:54] VITALS: BMI 19.8
[2018-02-28] MEDS ORDERED: Povidone Iodine Oint 10% Foilpak UD ONE (13:25)
[2018-02-28] MEDS ORDERED: cefTRIAXone (Rocephin) 1 gm Inj ONE ×2 (14:04→18:13)
[2018-02-28 14:24] LABS: SQUAMOUS EPITHIAL 2 /hpf (0-5); URINE BILIRUBIN NEGATIVE (NEGATIVE); URINE BLOOD NEGATIVE (NEGATIVE); URINE COLOR YELLOW (YELLOW); URINE GLUCOSE (UA) NEG (NEGATIVE); URINE LEUKOCYTE ESTERASE NEG Leu/uL (Negative); URINE PROTEIN NEGATIVE (NEGATIVE); URINE UROBILINOGEN 0.2-1.0 mg/dL (0.2-1.0)
[2018-02-28 14:28] LABS: URINE CLARITY CLEAR (Clear)
[2018-02-28 14:49] LABS: BARBITURATES, UR NEGATIVE (NEGATIVE); BENZODIAZEPINES, UR NEGATIVE (NEGATIVE); OPIATES, UR NEGATIVE (NEGATIVE); PHENCYCLIDINE, UR NEGATIVE (NEGATIVE)
--- NOTE | 2018-02-28 15:02 | CP.PCM.CON ---
Past Patient History - Infectious Disease Hx of Infectious Diseases: None - Tetanus Immunizations Tetanus Immunization: Unknown - Past Social History Smoking Status: Light Smoker < 10 Cigarettes Daily - CARDIAC Hx Hypertension: Yes - PULMONARY Hx Respiratory Disorders: No - NEUROLOGICAL Hx Neurological Disorder: No - HEENT Other/Comment: Myopia - RENAL Hx Chronic Kidney Disease: No - ENDOCRINE/METABOLIC Hx Endocrine Disorders: No - HEMATOLOGICAL/ONCOLOGICAL Hx Blood Disorders: No - INTEGUMENTARY Hx Dermatological Problems: No - MUSCULOSKELETAL/RHEUMATOLOGICAL Hx Musculoskeletal Disorders: No - GASTROINTESTINAL Hx Gastrointestinal Disorders: No - GENITOURINARY/GYNECOLOGICAL Hx Genitourinary Disorders: No - PSYCHIATRIC Hx Depression: Yes - SURGICAL HISTORY Hx Eye Surgery: Yes (lt eye) Hx Herniorrhaphy: Yes - ANESTHESIA Hx Anesthesia: Yes Hx Anesthesia Reactions: No Meds Allergies/Adverse Reactions: Allergies Allergy/AdvReac Type Severity Reaction Status Date / Time latex Allergy ANAPHYLAXIS Verified 02/27/18 18:31 strawberry Allergy ANAPHYLAXIS Verified 02/27/18 18:31 - Medications Medications: Current Medications Sodium Chloride (Sodium Chloride 0.9%) 1,000 mls @ 100 mls/hr IV .Q10H RADHA Last Admin: 02/28/18 12:14 Dose: 100 mls/hr Results - Vital Signs Recent Vital Signs: Last Vital Signs Temp 100.9 F H 02/28/18 13:40 Pulse 87 02/28/18 11:40 Resp 16 02/28/18 11:40 BP 162/76 H 02/28/18 11:40 Pulse Ox 96 02/28/18 14:32 - Labs Result Diagrams: 02/28/18 09:44 02/28/18 09:44 Labs: Laboratory Results - last 24 hr 02/28/18 02/28/18 02/28/18 09:30 09:44 09:44 WBC 8.8 RBC 4.81 Hgb 14.8 Hct 43.7 MCV 90.8 D MCH 30.8 MCHC 34.0 RDW 12.4 Plt Count 222 MPV 8.8 Neut % (Auto) 91.2 H Lymph % (Auto) 2.7 L [place] % (Auto) 5.6 Eos % (Auto) 0.1 Baso % (Auto) 0.4 Neut # (Auto) 8.0 H Lymph # (Auto) 0.2 L [place] # (Auto) 0.5 Eos # (Auto) 0.0 Baso # (Auto) 0.0 Neutrophils % (Manual) 86 H Lymphocytes % (Manual) 6 L Monocytes % (Manual) 8 Platelet Estimate Normal RBC Morphology Normal PT INR APTT pO2 VBG pH VBG pCO2 VBG HCO3 VBG Total CO2 VBG O2 Sat (Calc) VBG Base Excess VBG Potassium Glucose Lactate FiO2 Sodium 140 Potassium 4.3 Chloride 101 Carbon Dioxide 27 Anion Gap 16 BUN 27 H Creatinine 0.9 Est GFR ( Amer) > 60 Est GFR (Non-Af Amer) > 60 POC Glucose (mg/dL) 118 H Random Glucose 108 H Calcium 9.5 Total Bilirubin 0.9 AST 17 ALT 22 Alkaline Phosphatase 92 Troponin I < 0.0120 Total Protein 7.6 Albumin 4.5 Globulin 3.0 Albumin/Globulin Ratio 1.5 Triglycerides 61 Cholesterol 174 LDL Cholesterol Direct 118 HDL Cholesterol 57 Venous Blood Potassium Urine Color Urine Clarity Urine pH Ur Specific [place] Urine Protein Urine Glucose (UA) Urine Ketones Urine Blood Urine Nitrate Urine Bilirubin Urine Urobilinogen Ur Leukocyte Esterase Urine RBC (Auto) Urine Microscopic WBC Ur Squamous Epith Cells Urine Opiates Screen Urine Methadone Screen Ur Barbiturates Screen Ur Phencyclidine Scrn Ur Amphetamines Screen U Benzodiazepines Scrn U Oth Cocaine Metabols U Cannabinoids Screen Alcohol, Quantitative Influenza Typ A,B (EIA) Blood Type Antibody Screen BBK History Checked 02/28/18 02/28/18 02/28/18 09:44 09:44 10:15 WBC RBC Hgb Hct MCV MCH MCHC RDW Plt Count MPV Neut % (Auto) Lymph % (Auto) [place] % (Auto) Eos % (Auto) Baso % (Auto) Neut # (Auto) Lymph # (Auto) [place] # (Auto) Eos # (Auto) Baso # (Auto) Neutrophils % (Manual) Lymphocytes % (Manual) Monocytes % (Manual) Platelet Estimate RBC Morphology PT 12.5 INR 1.1 APTT 35.1 pO2 VBG pH VBG pCO2 VBG HCO3 VBG Total CO2 VBG O2 Sat (Calc) VBG Base Excess VBG Potassium Glucose Lactate FiO2 Sodium Potassium Chloride Carbon Dioxide Anion Gap BUN Creatinine Est GFR ( Amer) Est GFR (Non-Af Amer) POC Glucose (mg/dL) Random Glucose Calcium Total Bilirubin AST ALT Alkaline Phosphatase Troponin I Total Protein Albumin Globulin Albumin/Globulin Ratio Triglycerides Cholesterol LDL Cholesterol Direct HDL Cholesterol Venous Blood Potassium Urine Color Urine Clarity Urine pH Ur Specific [place] Urine Protein Urine Glucose (UA) Urine Ketones Urine Blood Urine Nitrate Urine Bilirubin Urine Urobilinogen Ur Leukocyte Esterase Urine RBC (Auto) Urine Microscopic WBC Ur Squamous Epith Cells Urine Opiates Screen Urine Methadone Screen Ur Barbiturates Screen Ur Phencyclidine Scrn Ur Amphetamines Screen U Benzodiazepines Scrn U Oth Cocaine Metabols U Cannabinoids Screen Alcohol, Quantitative Influenza Typ A,B (EIA) Negative for flu a/b Blood Type O POSITIVE Antibody Screen Negative BBK History Checked No verified bt 02/28/18 02/28/18 02/28/18 10:20 11:30 14:09 WBC RBC Hgb Hct MCV MCH MCHC RDW Plt Count MPV Neut % (Auto) Lymph % (Auto) [place] % (Auto) Eos % (Auto) Baso % (Auto) Neut # (Auto) Lymph # (Auto) [place] # (Auto) Eos # (Auto) Baso # (Auto) Neutrophils % (Manual) Lymphocytes % (Manual) Monocytes % (Manual) Platelet Estimate RBC Morphology PT INR APTT pO2 29 L VBG pH 7.39 VBG pCO2 43 VBG HCO3 24.4 VBG Total CO2 27.3 VBG O2 Sat (Calc) 62.3 VBG Base Excess 0.8 VBG Potassium 3.4 L Glucose 99 Lactate 1.6 FiO2 21.0 Sodium 136.0 Potassium Chloride 103.0 Carbon Dioxide Anion Gap BUN Creatinine Est GFR ( Amer) Est GFR (Non-Af Amer) POC Glucose (mg/dL) Random Glucose Calcium Total Bilirubin AST ALT Alkaline Phosphatase Troponin I Total Protein Albumin Globulin Albumin/Globulin Ratio Triglycerides Cholesterol LDL Cholesterol Direct HDL Cholesterol Venous Blood Potassium 3.4 L Urine Color Urine Clarity Urine pH Ur Specific [place] Urine Protein Urine Glucose (UA) Urine Ketones Urine Blood Urine Nitrate Urine Bilirubin Urine Urobilinogen Ur Leukocyte Esterase Urine RBC (Auto) Urine Microscopic WBC Ur Squamous Epith Cells Urine Opiates Screen Negative Urine Methadone Screen Negative Ur Barbiturates Screen Negative Ur Phencyclidine Scrn Negative Ur Amphetamines Screen Negative U Benzodiazepines Scrn Negative U Oth Cocaine Metabols Negative U Cannabinoids Screen Negative Alcohol, Quantitative < 10 Influenza Typ A,B (EIA) Blood Type Antibody Screen BBK History Checked 02/28/18 14:09 WBC RBC Hgb Hct MCV MCH MCHC RDW Plt Count MPV Neut % (Auto) Lymph % (Auto) [place] % (Auto) Eos % (Auto) Baso % (Auto) Neut # (Auto) Lymph # (Auto) [place] # (Auto) Eos # (Auto) Baso # (Auto) Neutrophils % (Manual) Lymphocytes % (Manual) Monocytes % (Manual) Platelet Estimate RBC Morphology PT INR APTT pO2 VBG pH VBG pCO2 VBG HCO3 VBG Total CO2 VBG O2 Sat (Calc) VBG Base Excess VBG Potassium Glucose Lactate FiO2 Sodium Potassium Chloride Carbon Dioxide Anion Gap BUN Creatinine Est GFR ( Amer) Est GFR (Non-Af Amer) POC Glucose (mg/dL) Random Glucose Calcium Total Bilirubin AST ALT Alkaline Phosphatase Troponin I Total Protein Albumin Globulin Albumin/Globulin Ratio Triglycerides Cholesterol LDL Cholesterol Direct HDL Cholesterol Venous Blood Potassium Urine Color Yellow Urine Clarity Clear Urine pH 5.0 Ur Specific [place] 1.026 Urine Protein Negative Urine Glucose (UA) Neg Urine Ketones Trace Urine Blood Negative Urine Nitrate Negative Urine Bilirubin Negative Urine Urobilinogen 0.2-1.0 Ur Leukocyte Esterase Neg Urine RBC (Auto) 1 Urine Microscopic WBC 1 Ur Squamous Epith Cells 2 Urine Opiates Screen Urine Methadone Screen Ur Barbiturates Screen Ur Phencyclidine Scrn Ur Amphetamines Screen U Benzodiazepines Scrn U Oth Cocaine Metabols U Cannabinoids Screen Alcohol, Quantitative Influenza Typ A,B (EIA) Blood Type Antibody Screen BBK History Checked Assessment & Plan - Assessment and Plan (Free Text) Assessment: Patient who is not appears to have aphasia, differential of sepsis, malingering. Plan 1. MRI BRain without contrast'
[2018-02-28] MEDS ORDERED: Gadodiamide 287 MG/ML VIAL (15ML) IV ONE (15:51)
--- NOTE | 2018-02-28 17:07 | MRI ---
Date of service: 02/28/2018 PROCEDURE: MRI BRAIN WITH AND WITHOUT CONTRAST HISTORY: Altered mental status COMPARISON: Noncontrast head CT performed earlier the same day. TECHNIQUE: Multiplanar, multisequence MR images of the brain were obtained with and without intravenous contrast enhancement. 13 mL Omniscan was injected intravenously. FINDINGS: HEMORRHAGE: None DWI: No evidence of an acute or early subacute infarction. BRAIN PARENCHYMA: Are multifocal T2/FLAIR hyperintense lesion in the subcortical, deep and periventricular white matter. The periventricular lesions are perpendicular in orientation and round as well as ovoid in shape. There is no mass, mass effect or abnormal extra-axial fluid collection. Midline sagittal structures are normal. ENHANCEMENT: No abnormal intracranial enhancement. VENTRICLES: There is mild age advanced global parenchymal volume loss and proportionate enlargement of the ventricles and cortical sulci. CRANIUM: There is normal bone marrow signal pattern. ORBITS: Grossly unremarkable. PARANASAL SINUSES/MASTOIDS: There is moderate mucosal thickening in the paranasal sinuses. The mastoid air cells are predominantly clear. VASCULAR SYSTEM: There are normal signal voids in the larger intracranial arteries. OTHER FINDINGS: None . IMPRESSION: 1. No acute intracranial abnormality. 2. Moderate supratentorial white matter changes are nonspecific however concerning for demyelinating disease including multiple sclerosis. No evidence for active demyelination. The other differential considerations include severe chronic microangiopathic changes, vasculitis and Lyme disease. Clinical follow-up is advised. 3. Mild age advanced global parenchymal volume loss. 4. Chronic pansinusitis.
--- NOTE | 2018-02-28 18:27 | CP.PCM.HP ---
History of Present Illness - History of Present Illness History of Present Illness: 52 yo female with history of MS presented to ED with altered mental status. AMS improved throughout ED course though still confused. Patient seen and examined at bedside. denies pain/fever/chills/cp/sob/n/v/d. Neuro evaluated, MRI obtained. All available diagnostic data reviewed Present on Admission - Present on Admission Any Indicators Present on Admission: No Review of Systems - Review of Systems All systems: reviewed and no additional remarkable complaints except (mentioned above) Past Patient History - Infectious Disease Hx of Infectious Diseases: None - Tetanus Immunizations Tetanus Immunization: Unknown - Past Medical History & Family History Past Medical History?: Yes Past Family History: Reviewed and not pertinent - Past Social History Smoking Status: Light Smoker < 10 Cigarettes Daily - CARDIAC Hx Hypertension: Yes - PULMONARY Hx Respiratory Disorders: No - NEUROLOGICAL Hx Neurological Disorder: No - HEENT Other/Comment: Myopia - RENAL Hx Chronic Kidney Disease: No - ENDOCRINE/METABOLIC Hx Endocrine Disorders: No - HEMATOLOGICAL/ONCOLOGICAL Hx Blood Disorders: No - INTEGUMENTARY Hx Dermatological Problems: No - MUSCULOSKELETAL/RHEUMATOLOGICAL Hx Musculoskeletal Disorders: No - GASTROINTESTINAL Hx Gastrointestinal Disorders: No - GENITOURINARY/GYNECOLOGICAL Hx Genitourinary Disorders: No - PSYCHIATRIC Hx Depression: Yes - SURGICAL HISTORY Hx Eye Surgery: Yes (lt eye) Hx Herniorrhaphy: Yes - ANESTHESIA Hx Anesthesia: Yes Hx Anesthesia Reactions: No Meds Allergies/Adverse Reactions: Allergies Allergy/AdvReac Type Severity Reaction Status Date / Time latex Allergy ANAPHYLAXIS Verified 02/27/18 18:31 strawberry Allergy ANAPHYLAXIS Verified 02/27/18 18:31 Physical Exam - Constitutional Appears: Non-toxic, Confused - Head Exam Head Exam: NORMAL INSPECTION - Eye Exam Eye Exam: Normal appearance - Neck Exam Neck exam: Positive for: Normal Inspection. Negative for: Meningismus - Respiratory Exam Respiratory Exam: Clear to Auscultation Bilateral, NORMAL BREATHING PATTERN - Cardiovascular Exam Cardiovascular Exam: +S1, +S2 - GI/Abdominal Exam GI & Abdominal Exam: Normal Bowel Sounds, Soft - Extremities Exam Extremities exam: Positive for: normal inspection - Back Exam Back exam: NORMAL INSPECTION - Neurological Exam Neurological exam: Alert - Psychiatric Exam Psychiatric exam: Normal Affect, Normal Mood - Skin Skin Exam: Normal Color, Warm Results - Vital Signs Recent Vital Signs: Last Vital Signs Temp 99.7 F H 02/28/18 14:40 Pulse 87 02/28/18 11:40 Resp 16 02/28/18 11:40 BP 162/76 H 02/28/18 11:40 Pulse Ox 96 02/28/18 17:55 - Labs Result Diagrams: 02/28/18 09:44 02/28/18 09:44 Labs: Laboratory Results - last 24 hr 02/28/18 02/28/18 02/28/18 09:30 09:44 09:44 WBC 8.8 RBC 4.81 Hgb 14.8 Hct 43.7 MCV 90.8 D MCH 30.8 MCHC 34.0 RDW 12.4 Plt Count 222 MPV 8.8 Neut % (Auto) 91.2 H Lymph % (Auto) 2.7 L [place] % (Auto) 5.6 Eos % (Auto) 0.1 Baso % (Auto) 0.4 Neut # (Auto) 8.0 H Lymph # (Auto) 0.2 L [place] # (Auto) 0.5 Eos # (Auto) 0.0 Baso # (Auto) 0.0 Neutrophils % (Manual) 86 H Lymphocytes % (Manual) 6 L Monocytes % (Manual) 8 Platelet Estimate Normal RBC Morphology Normal PT INR APTT pO2 VBG pH VBG pCO2 VBG HCO3 VBG Total CO2 VBG O2 Sat (Calc) VBG Base Excess VBG Potassium Glucose Lactate FiO2 Sodium 140 Potassium 4.3 Chloride 101 Carbon Dioxide 27 Anion Gap 16 BUN 27 H Creatinine 0.9 Est GFR ( Amer) > 60 Est GFR (Non-Af Amer) > 60 POC Glucose (mg/dL) 118 H Random Glucose 108 H Calcium 9.5 Total Bilirubin 0.9 AST 17 ALT 22 Alkaline Phosphatase 92 Troponin I < 0.0120 Total Protein 7.6 Albumin 4.5 Globulin 3.0 Albumin/Globulin Ratio 1.5 Triglycerides 61 Cholesterol 174 LDL Cholesterol Direct 118 HDL Cholesterol 57 Venous Blood Potassium Urine Color Urine Clarity Urine pH Ur Specific [place] Urine Protein Urine Glucose (UA) Urine Ketones Urine Blood Urine Nitrate Urine Bilirubin Urine Urobilinogen Ur Leukocyte Esterase Urine RBC (Auto) Urine Microscopic WBC Ur Squamous Epith Cells Urine Opiates Screen Urine Methadone Screen Ur Barbiturates Screen Ur Phencyclidine Scrn Ur Amphetamines Screen U Benzodiazepines Scrn U Oth Cocaine Metabols U Cannabinoids Screen Alcohol, Quantitative Influenza Typ A,B (EIA) Blood Type Antibody Screen BBK History Checked 02/28/18 02/28/18 02/28/18 09:44 09:44 10:15 WBC RBC Hgb Hct MCV MCH MCHC RDW Plt Count MPV Neut % (Auto) Lymph % (Auto) [place] % (Auto) Eos % (Auto) Baso % (Auto) Neut # (Auto) Lymph # (Auto) [place] # (Auto) Eos # (Auto) Baso # (Auto) Neutrophils % (Manual) Lymphocytes % (Manual) Monocytes % (Manual) Platelet Estimate RBC Morphology PT 12.5 INR 1.1 APTT 35.1 pO2 VBG pH VBG pCO2 VBG HCO3 VBG Total CO2 VBG O2 Sat (Calc) VBG Base Excess VBG Potassium Glucose Lactate FiO2 Sodium Potassium Chloride Carbon Dioxide Anion Gap BUN Creatinine Est GFR ( Amer) Est GFR (Non-Af Amer) POC Glucose (mg/dL) Random Glucose Calcium Total Bilirubin AST ALT Alkaline Phosphatase Troponin I Total Protein Albumin Globulin Albumin/Globulin Ratio Triglycerides Cholesterol LDL Cholesterol Direct HDL Cholesterol Venous Blood Potassium Urine Color Urine Clarity Urine pH Ur Specific [place] Urine Protein Urine Glucose (UA) Urine Ketones Urine Blood Urine Nitrate Urine Bilirubin Urine Urobilinogen Ur Leukocyte Esterase Urine RBC (Auto) Urine Microscopic WBC Ur Squamous Epith Cells Urine Opiates Screen Urine Methadone Screen Ur Barbiturates Screen Ur Phencyclidine Scrn Ur Amphetamines Screen U Benzodiazepines Scrn U Oth Cocaine Metabols U Cannabinoids Screen Alcohol, Quantitative Influenza Typ A,B (EIA) Negative for flu a/b Blood Type O POSITIVE Antibody Screen Negative BBK History Checked No verified bt 02/28/18 02/28/18 02/28/18 10:20 11:30 14:09 WBC RBC Hgb Hct MCV MCH MCHC RDW Plt Count MPV Neut % (Auto) Lymph % (Auto) [place] % (Auto) Eos % (Auto) Baso % (Auto) Neut # (Auto) Lymph # (Auto) [place] # (Auto) Eos # (Auto) Baso # (Auto) Neutrophils % (Manual) Lymphocytes % (Manual) Monocytes % (Manual) Platelet Estimate RBC Morphology PT INR APTT pO2 29 L VBG pH 7.39 VBG pCO2 43 VBG HCO3 24.4 VBG Total CO2 27.3 VBG O2 Sat (Calc) 62.3 VBG Base Excess 0.8 VBG Potassium 3.4 L Glucose 99 Lactate 1.6 FiO2 21.0 Sodium 136.0 Potassium Chloride 103.0 Carbon Dioxide Anion Gap BUN Creatinine Est GFR ( Amer) Est GFR (Non-Af Amer) POC Glucose (mg/dL) Random Glucose Calcium Total Bilirubin AST ALT Alkaline Phosphatase Troponin I Total Protein Albumin Globulin Albumin/Globulin Ratio Triglycerides Cholesterol LDL Cholesterol Direct HDL Cholesterol Venous Blood Potassium 3.4 L Urine Color Urine Clarity Urine pH Ur Specific [place] Urine Protein Urine Glucose (UA) Urine Ketones Urine Blood Urine Nitrate Urine Bilirubin Urine Urobilinogen Ur Leukocyte Esterase Urine RBC (Auto) Urine Microscopic WBC Ur Squamous Epith Cells Urine Opiates Screen Negative Urine Methadone Screen Negative Ur Barbiturates Screen Negative Ur Phencyclidine Scrn Negative Ur Amphetamines Screen Negative U Benzodiazepines Scrn Negative U Oth Cocaine Metabols Negative U Cannabinoids Screen Negative Alcohol, Quantitative < 10 Influenza Typ A,B (EIA) Blood Type Antibody Screen BBK History Checked 02/28/18 14:09 WBC RBC Hgb Hct MCV MCH MCHC RDW Plt Count MPV Neut % (Auto) Lymph % (Auto) [place] % (Auto) Eos % (Auto) Baso % (Auto) Neut # (Auto) Lymph # (Auto) [place] # (Auto) Eos # (Auto) Baso # (Auto) Neutrophils % (Manual) Lymphocytes % (Manual) Monocytes % (Manual) Platelet Estimate RBC Morphology PT INR APTT pO2 VBG pH VBG pCO2 VBG HCO3 VBG Total CO2 VBG O2 Sat (Calc) VBG Base Excess VBG Potassium Glucose Lactate FiO2 Sodium Potassium Chloride Carbon Dioxide Anion Gap BUN Creatinine Est GFR ( Amer) Est GFR (Non-Af Amer) POC Glucose (mg/dL) Random Glucose Calcium Total Bilirubin AST ALT Alkaline Phosphatase Troponin I Total Protein Albumin Globulin Albumin/Globulin Ratio Triglycerides Cholesterol LDL Cholesterol Direct HDL Cholesterol Venous Blood Potassium Urine Color Yellow Urine Clarity Clear Urine pH 5.0 Ur Specific [place] 1.026 Urine Protein Negative Urine Glucose (UA) Neg Urine Ketones Trace Urine Blood Negative Urine Nitrate Negative Urine Bilirubin Negative Urine Urobilinogen 0.2-1.0 Ur Leukocyte Esterase Neg Urine RBC (Auto) 1 Urine Microscopic WBC 1 Ur Squamous Epith Cells 2 Urine Opiates Screen Urine Methadone Screen Ur Barbiturates Screen Ur Phencyclidine Scrn Ur Amphetamines Screen U Benzodiazepines Scrn U Oth Cocaine Metabols U Cannabinoids Screen Alcohol, Quantitative Influenza Typ A,B (EIA) Blood Type Antibody Screen BBK History Checked Assessment & Plan - Assessment and Plan (Free Text) Assessment: 52 yo female w/ PMHx of MS with AMS, possibly MS flare? data reviewed, unremarkable c/w tamiflu/rocephin for now consult neuro appreciated monitor on tele neuro checks c/w plan as ordered
--- NOTE | 2018-03-01 01:44 | CARD ---
APPROVED REPORT Date of service: 02/28/2018 EKG Measurement Heart [id number] <Conclusion> Normal sinus rhythm Possible septal infarct, age undetermined Abnormal ECG
[2018-03-01 06:55] LABS: HEMOGLOBIN 13.9 g/dL (12.0-16.0); MEAN CELL VOLUME 94.1 fl (81.0-99.0); MEAN CORPUSCULAR HEMOGLOBIN 30.9 pg (27.0-31.0); MEAN CORPUSCULAR HGB CONC 32.9 g/dL (33.0-37.0); RBC 4.5 Mil/uL (3.80-5.20); RED CELL DISTRIBUTION WIDTH 12.8 % (11.5-14.5); WHITE BLOOD COUNT 4.2 K/uL (4.8-10.8)
[2018-03-01 07:05] LABS: ALB/GLOB RATIO 1.4 (1.0-2.1); ALBUMIN 3.6 g/dL (3.5-5.0); ALT/SGPT 25 U/L (9-52); AST/SGOT 18 U/L (14-36); BLOOD UREA NITROGEN 22 mg/dl (7-17); CALCIUM 8.6 mg/dL (8.4-10.2); GFR NON-AFRICAN AMERICAN > 60
[2018-03-01] MEDS: Enoxaparin 40 mg Syringe SC SCH (09:43)
[2018-03-02] MEDS: Enoxaparin 40 mg Syringe SC SCH (09:26)
[2018-03-03 05:13] VITALS: RESP 18
[2018-03-03 06:51] LABS: HEMOGLOBIN 13.7 g/dL (12.0-16.0); MEAN CELL VOLUME 90.6 fl (81.0-99.0); MEAN CORPUSCULAR HEMOGLOBIN 31.2 pg (27.0-31.0); MEAN CORPUSCULAR HGB CONC 34.4 g/dL (33.0-37.0); RBC 4.39 Mil/uL (3.80-5.20); RED CELL DISTRIBUTION WIDTH 12.5 % (11.5-14.5); WHITE BLOOD COUNT 4.3 K/uL (4.8-10.8)
[2018-03-03 07:06] LABS: ALB/GLOB RATIO 1.4 (1.0-2.1); ALBUMIN 3.8 g/dL (3.5-5.0); ALT/SGPT 18 U/L (9-52); AST/SGOT 18 U/L (14-36); BLOOD UREA NITROGEN 16 mg/dl (7-17); CALCIUM 9.2 mg/dL (8.4-10.2); GFR NON-AFRICAN AMERICAN > 60
[2018-03-03 07:46] VITALS: BP 155/79; PULSE 60; TEMP 98.5; O2SAT 97
[2018-03-03] MEDS: Enoxaparin 40 mg Syringe SC SCH ×2 (09:28→09:35)
--- NOTE | 2018-03-04 23:01 | PQF ---
PROVIDER RESPONSE TEXT: Provider was unable to determine a response for this query. REVIEWER QUERY TEXT: Fever of Unknown Origin Cause Fever temp max to 103 is noted in the Medical Record. Treated with a dose of Rocephin in the ER and currently on Tamiflu only. Please clarify the cause of fever (Includes suspected or probable) Such as: -- Bacterial -- Drug-induced -- Fungal -- Infectious disease -- Malignancy -- Viral -- Other, please specify The patient's Clinical Indicators include: ER MD: Patient has trouble communicating to say what brought her to the ER. Upon review of the chart, pt was here the other day in the ER for cough congestion and left before treatment completion. Neurologic/Psych: Positive for: improvement auditor II-XII, Oriented (x1), Aphasia, Other (confused).Negative for: Al ert ER MD: flu swab negative but will treat as there is high false negative rate. Rx: Tamiflu, Rocephin Query created by: Emily Hinds on 03/01/2018 8:41 AM Electronically signed by: Tawanda Padilla 03/04/2018 10:58 PM
== END 2018-03-03 10:41 | disposition home or self-care (01) | DRG 13 ==
LOC: H.ER 09:19 → H.ERHOLD 17:37 → H.TEL 03-01 13:19
PROVIDERS: ADMIT Family Medicine; ATTEND Family Medicine
DX: G35 Multiple sclerosis (principal); F17.210 Nicotine dependence, cigarettes, uncomplicated; I10 Essential (primary) hypertension; M79.7 Fibromyalgia; F32.9 Major depressive disorder, single episode, unspecified; Z91.040 Latex allergy status; Z91.018 Allergy to other foods; Z76.5 Malingerer [conscious simulation]; J32.4 Chronic pansinusitis; R47.01 Aphasia

== ENCOUNTER 2018-03-19 11:37 | Emergency (ER) | payer OTHER ==
[2018-03-19 11:37] VITALS: BMI 19.8
[2018-03-19] MEDS ORDERED: Naloxone 0.4 mg/ml Inj (Adult) IVP STA (12:19)
[2018-03-19] MEDS ORDERED: Ammonia 2% Inhalant ONE ×2 (12:22→15:41)
--- NOTE | 2018-03-19 12:36 | ED PDOC ---
HPI: Altered Mental Status Time Seen by Provider: 03/19/18 11:57 Chief Complaint (Nursing): Weakness/Neurological Deficit Chief Complaint (Provider): Altered mental status History Per: Patient History/Exam Limitations: Clinical Condition Onset Of Symptoms: Cannot Confirm Onset Description Of Symptoms: Difficult To Arouse Additional Complaint(s): 52yo female, with history of multiple sclerosis, brought to ER by EMS for evaluation as patient was noted to be weak [facility] at [facility]. Currently in the ER, patient is refusing to answer all questions and is pro viding limited responses. She denies any pain, and denies any alcohol/drug usage. Past Medical History Reviewed: Historical Data, Nursing Documentation, Vital Signs Vital Signs: Last Vital Signs Temp 101.4 F H 03/19/18 11:39 Pulse 76 03/19/18 11:39 Resp 16 03/19/18 11:39 BP 149/81 03/19/18 11:39 Pulse Ox 96 03/19/18 11:39 - Medical History PMH: Depression, Fibromyalgia, HTN, Chronic Pain (chronic leg weakness) Denies: Chronic Kidney Disease Other PMH: multiple sclerosis - Surgical History Surgical History: Hernia Repair - Family History Family History: States: Unknown Family Hx - Immunization History Hx Tetanus Toxoid Vaccination: No Hx Influenza Vaccination: No Hx Pneumococcal Vaccination: No - Home Medications Home Medications: Ambulatory Orders Medication Instructions Recorded Enalapril Maleate [Vasotec] 5 mg PO DAILY 03/01/18 Gabapentin [Neurontin] 300 mg PO BID 03/01/18 Oseltamivir Phosphate [Tamiflu] 75 mg PO BID 5 Days capsule 03/19/18 - Allergies Allergies/Adverse Reactions: Allergies Allergy/AdvReac Type Severity Reaction Status Date / Time latex Allergy ANAPHYLAXIS Verified 03/19/18 11:38 strawberry Allergy ANAPHYLAXIS Verified 03/19/18 11:38 Review of Systems Review Of Systems: ROS cannot be obtained secondary to pt's inabilty to answer questions. (limited due to patient's presentation; as per HPI) Constitutional: Positive for: Weakness Neurological: Positive for: Weakness Physical Exam - Reviewed Nursing Documentation Reviewed: Yes Vital Signs Reviewed: Yes - Physical Exam Appears: Positive for: Non-toxic, No Acute Distress Head Exam: Positive for: ATRAUMATIC, NORMAL INSPECTION, NORMOCEPHALIC Skin: Positive for: Normal Color Eye Exam: Positive for: PERRL ENT: Negative for: Nasal Congestion, Pharyngeal Erythema Neck: Positive for: Painless ROM, Supple Cardiovascular/Chest: Positive for: Regular Rate, Rhythm Respiratory: Positive for: Normal Breath Sounds Pulses-Radial (L): 2+ Pulses-Radial (R): 2+ Gastrointestinal/Abdominal: Positive for: Soft. Negative for: Tenderness Back: Positive for: Normal Inspection. Negative for: L CVA Tenderness, R CVA Tenderness Extremity: Negative for: Tenderness, Pedal Edema, Calf Tenderness Neurologic/Psych: Positive for: Alert, Other (patient answering some questions and commands; moves all extremities on her own will. Not cooperative during exam.) - Laboratory Results Result Diagrams: 03/19/18 13:40 03/19/18 13:40 Lab Results: no acute - ECG ECG: Positive for: Interpreted By Me, Viewed By Me ECG Rhythm: Positive for: Normal QRS, Normal ST Segment, Sinus Rhythm O2 Sat by Pulse Oximetry: 96 (RA) Pulse Ox Interpretation: Normal - Radiology X-Ray: Read By Radiologist X-Ray Interpretation: No Acute Disease - CT Scan/US ct Other Rad Studies (CT/US): Read By Radiologist Other Rad Interpretation: no acute - Progress ED Course And Treament: 1542: Stable. AAOx3. Ammonia used on pt. nares and she woke up with no issues. States she is ready to go. AAOx3. Fever improved. Likely URI. Lives in halfway. Will rx tamiflu. Tolerated PO. FU with pcp. Medical Decision Making Medical Decision Making: Impression: 52yo male, altered mental status difficult to arouse during exam patient currently febrile in ER Plan: -- Labs -- CT Head w/o contrast -- Chest x-ray -- EKG -- Urinalysis -- Tylenol 975mg MA -- Narcan 0.4mg IVP -- IV Fluids 1313 Chest x-ray FINDINGS: LUNGS: No active pulmonary disease. PLEURA: No significant pleural effusion identified, no pneumothorax apparent. CARDIOVASCULAR: Aortic atherosclerotic calcifications. Cardiomediastinal silhouette within normal limits. OSSEOUS STRUCTURES: Unchanged. VISUALIZED UPPER ABDOMEN: Normal. OTHER FINDINGS: None. IMPRESSION: No active disease. 1533 CT Head FINDINGS: HEMORRHAGE: No intracranial hemorrhage. BRAIN: No intracranial mass. Patchy periventricular low attenuation is again identi fied adjacent to the frontal horn of the left and into the ulrich radiata and centrum semiovale bilaterally, left greater than right. The appearance is unchanged compared to the prior examination. In conjunction with MRI brain performed on 02/28/2018, the findings may reflect demyelinating disease although as previously stated the possibility of vasculitis or Lyme disease must also be considered. This is not consistent with an acute infarct. VENTRICLES: Unremarkable. No hydrocephalus. CALVARIUM: Unremarkable. PARANASAL SINUSES: Chronic frontal and ethmoid sinusitis. MASTOID AIR CELLS: Unremarkable as visualized. No inflammatory changes. OTHER FINDINGS: None. IMPRESSION: Nonspecific white matter changes stable since 02/28/2018. Differential diagnosis as above. No evidence of acute infarct. No intracranial mass or hemorrhage. Chronic paranasal sinusitis. Scribe Attestation: Documented by Earline Verma acting as a scribe for Thiago Saldana MD. Provider Attestation: All medical record entries made by the Scribe were at my direction and personally dictated by me. I have reviewed the chart and agree that the record accurately reflects my personal performance of the history, physical exam, medical decision making, and the department course for this patient. I have also personally directed, reviewed, and agree with the discharge instructions and disposition. Disposition - Clinical Impression Clinical Impression: Weakness, URI (upper respiratory infection) - Patient ED Disposition Is Patient to be Admitted: No Counseled Patient/Family Regarding: Studies Performed, Diagnosis, Need For Followup, Rx Given - Disposition Referrals: [facility] [Outside] - 03/20/18 Disposition: Routine/Home Disposition Time: 15:45 Condition: STABLE Additional Instructions: Return if not better in 3 days. Prescriptions: Oseltamivir Phosphate [Tamiflu] 75 mg PO BID 5 Days capsule Instructions: Weakness (ED), Viral Upper Respiratory Infection, Adult (DC)
--- NOTE | 2018-03-19 13:02 | RAD ---
Date of service: 03/19/2018 HISTORY: Sepsis Patient COMPARISON: Chest radiograph dated 02/28/2018. FINDINGS: LUNGS: No active pulmonary disease. PLEURA: No significant pleural effusion identified, no pneumothorax apparent. CARDIOVASCULAR: Aortic atherosclerotic calcifications. Cardiomediastinal silhouette within normal limits. OSSEOUS STRUCTURES: Unchanged. VISUALIZED UPPER ABDOMEN: Normal. OTHER FINDINGS: None. IMPRESSION: No active disease.
[2018-03-19] MEDS ORDERED: Naloxone 0.4 mg/ml Inj (Adult) ONE (13:04)
[2018-03-19 13:10] LABS: ABG ALLEN TEST YES; ARTERIAL BLOOD GAS HCO3 27.6 mmol/L (21-28); ARTERIAL BLOOD GAS O2 SAT 99.6 % (95-98); ARTERIAL BLOOD GAS PCO2 35 mm/Hg (35-45); ARTERIAL BLOOD GAS PH 7.49 (7.35-7.45); ARTERIAL BLOOD GAS PO2 83 mm/Hg (80-100); ARTERIAL BLOOD GAS TCO2 27.8 mmol/L (22-28)
[2018-03-19] MEDS: Sodium Chloride 0.9% 1,000 ML IV SCH ×2 (13:10→16:05)
[2018-03-19 13:54] LABS: BASO # 0.1 K/uL (0.0-0.2); BASO % 0.5 % (0.0-2.0); EOS % 0.1 % (0.0-4.0); HEMOGLOBIN 15.2 g/dL (12.0-16.0); LYMPH # 0.7 K/uL (1.0-4.3); LYMPH % 6.5 % (20.0-40.0); MEAN CELL VOLUME 91.3 fl (81.0-99.0); MEAN CORPUSCULAR HGB CONC 33.9 g/dL (33.0-37.0); MEAN PLATELET VOLUME 8.6 fl (7.2-11.7); MONO # 0.4 K/uL (0.0-0.8); MONO % 3.3 % (0.0-10.0); NEUT # 10.4 K/uL (1.8-7.0); NEUT % 89.6 % (50.0-75.0); NRBC % 0.2 % (0.0-0.0); PLATELET COUNT 227 K/uL (130-400); RBC 4.91 Mil/uL (3.80-5.20); RED CELL DISTRIBUTION WIDTH 12.3 % (11.5-14.5); WHITE BLOOD COUNT 11.6 K/uL (4.8-10.8)
[2018-03-19 14:05] LABS: ALB/GLOB RATIO 1.4 (1.0-2.1); ALBUMIN 4.2 g/dL (3.5-5.0); ALT/SGPT 20 U/L (9-52); AST/SGOT 14 U/L (14-36); BLOOD UREA NITROGEN 15 mg/dl (7-17); CALCIUM 9.7 mg/dL (8.4-10.2); GFR NON-AFRICAN AMERICAN > 60
[2018-03-19 14:58] LABS: INR 1.1; PROTHROMBIN TIME 12.3 Seconds (9.8-13.1)
[2018-03-19 15:01] LABS: PARTIAL THROMBOPLASTIN TIME 36.5 Seconds (25.6-37.1)
[2018-03-19 15:10] LABS: EOSINOPHIL 2 % (0-7); LYMPHOCYTE 9 % (20-50); MONOCYTE 4 % (0-10); NEUTROPHIL 85 % (42-75); PLATELET ESTIMATE NORMAL (NORMAL); TOTAL CELLS COUNTED 100
--- NOTE | 2018-03-19 15:20 | CT ---
Date of service: 03/19/2018 PROCEDURE: CT HEAD WITHOUT CONTRAST. HISTORY: weakness COMPARISON: 02/28/2018 TECHNIQUE: Axial computed tomography images were obtained through the head/brain without intravenous contrast. Radiation dose: Total exam DLP = 783.44 mGy-cm. This CT exam was performed using one or more of the following dose reduction techniques: Automated exposure control, adjustment of the mA and/or kV according to patient size, and/or use of iterative reconstruction technique. FINDINGS: HEMORRHAGE: No intracranial hemorrhage. BRAIN: No intracranial mass. Patchy periventricular low attenuation is again identified adjacent to the frontal horn of the left and into the ulrich radiata and centrum semiovale bilaterally, left greater than right. The appearance is unchanged compared to the prior examination. In conjunction with MRI brain performed on 02/28/2018, the findings may reflect demyelinating disease although as previously stated the possibility of vasculitis or Lyme disease must also be considered. This is not consistent with an acute infarct. VENTRICLES: Unremarkable. No hydrocephalus. CALVARIUM: Unremarkable. PARANASAL SINUSES: Chronic frontal and ethmoid sinusitis. MASTOID AIR CELLS: Unremarkable as visualized. No inflammatory changes. OTHER FINDINGS: None. IMPRESSION: Nonspecific white matter changes stable since 02/28/2018. Differential diagnosis as above. No evidence of acute infarct. No intracranial mass or hemorrhage. Chronic paranasal sinusitis.
[2018-03-19] MEDS ORDERED: Ammonia 2% Inhalant INH ONE (15:42)
[2018-03-19 16:09] VITALS: BP 120/70; PULSE 76; RESP 20; TEMP 98; O2SAT 98
--- NOTE | 2018-03-19 19:37 | CARD ---
APPROVED REPORT Date of service: 03/19/2018 EKG Measurement Heart [id number] <Conclusion> Atrial tachycardia/ flutter with 3:1 block Abnormal ECG
== END 2018-03-19 16:09 | disposition home or self-care (01) ==
LOC: H.ER 11:37
DX: R53.1 Weakness (principal); J06.9 Acute upper respiratory infection, unspecified; Z86.59 Personal history of other mental and behavioral disorders; G35 Multiple sclerosis; G89.29 Other chronic pain; I10 Essential (primary) hypertension; M79.7 Fibromyalgia; Z59.0 Homelessness
CPT/HCPCS: 36600; 70450; 71045; 80053; 80320; 82803; 83735; 84100; 84484; 85025; 85610; 85730; 87040; 87804; 93005; 96361; 96374; 99285; J2310; J7030

== ENCOUNTER 2018-03-25 19:07 | Emergency (ER) | payer OTHER ==
[2018-03-25 19:08] VITALS: BMI 19.8
--- NOTE | 2018-03-26 01:11 | ED PDOC ---
HPI: Psych/Substance Abuse Time Seen by Provider: 03/25/18 19:44 Chief Complaint (Nursing): Back Pain Chief Complaint (Provider): Bed Seeking Additional Complaint(s): 52 years old female presents with bed seeking behavior. PMD: None provided Past Medical History Vital Signs: Last Vital Signs Temp 99.7 F H 03/25/18 19:12 Pulse 80 03/25/18 19:12 Resp 16 03/25/18 19:12 BP 150/84 03/25/18 19:12 Pulse Ox 99 03/25/18 19:12 - Medical History PMH: Depression, Fibromyalgia, HTN, Multiple Sclerosis, Chronic Pain (chronic leg weakness) Denies: Chronic Kidney Disease - Surgical History Surgical History: Hernia Repair - Family History Family History: States: Unknown Family Hx - Immunization History Hx Tetanus Toxoid Vaccination: No Hx Influenza Vaccination: No Hx Pneumococcal Vaccination: No - Home Medications Home Medications: Ambulatory Orders Medication Instructions Recorded Enalapril Maleate [Vasotec] 5 mg PO DAILY 03/01/18 Gabapentin [Neurontin] 300 mg PO BID 03/01/18 Oseltamivir Phosphate [Tamiflu] 75 mg PO BID 5 Days capsule 03/19/18 - Allergies Allergies/Adverse Reactions: Allergies Allergy/AdvReac Type Severity Reaction Status Date / Time latex Allergy ANAPHYLAXIS Verified 03/25/18 19:16 strawberry Allergy ANAPHYLAXIS Verified 03/25/18 19:16 - ECG O2 Sat by Pulse Oximetry: 99 (RA) Pulse Ox Interpretation: Normal Medical Decision Making Medical Decision Makin Patient is sleeping throughout and stable for discharge. Scribe Attestation: Documented by Katherine Bill, acting as a scribe for Walter Dunham MD. Provider Scribe Attestation: All medical record entries made by the Scribe were at my direction and personally dictated by me. I have reviewed the chart and agree that the record accurately reflects my personal performance of the history, physical exam, medical decision making, and the department course for this patient. I have also personally directed, reviewed, and agree with the discharge instructions and disposition. Disposition - Clinical Impression Clinical Impression: Chronic leg pain - Patient ED Disposition Is Patient to be Admitted: No - Disposition Disposition: Routine/Home Disposition Time: 03:30 Condition: IMPROVED Additional Instructions: follow up with outpatient doctor in 1-2 days return to the ED with any worsening or concerning symptoms Instructions: Chronic Pain Forms: [facility] ([place])
[2018-03-26 05:26] VITALS: BP 105/69; PULSE 76; RESP 18; TEMP 99; O2SAT 97
== END 2018-03-26 05:45 | disposition home or self-care (01) ==
LOC: H.ER 19:07
DX: M79.606 Pain in leg, unspecified (principal); G89.29 Other chronic pain; G35 Multiple sclerosis; I10 Essential (primary) hypertension; M79.7 Fibromyalgia; Z86.59 Personal history of other mental and behavioral disorders

== ENCOUNTER 2018-04-23 07:59 | Emergency (ER) | payer OTHER ==
[2018-04-23 07:59] VITALS: BMI 19.8
[2018-04-23 08:03] VITALS: RESP 16; O2SAT 100
--- NOTE | 2018-04-23 08:50 | ED PDOC ---
Syncope/Near Syncope/Dizziness Time Seen by Provider: 04/23/18 08:16 Chief Complaint (Nursing): Dizziness/Lightheaded Chief Complaint (Provider): Dizziness History Per: Patient History/Exam Limitations: no limitations Current Symptoms Are (Timing): Still Present Activity At Onset Of Symptoms: Standing, Walking Seizure Or Post-ictal Symptoms: None Fall Associated With With Symptoms: Yes, No Injury As Result Of Fall Additional History Per: Patient Additional Complaint(s): 52yo female, with history of hypertension, multiple sclerosis, brought to ER by EMS for evaluation after she fell. Patient states she has been walking frequently, and while standing at the bus stop today, she felt dizzy. She reports she attempted to walk back to the long-term and in that process, she fell. Patient denies any head injury, loss of consciousness but states she was unable to get up by herself. She denies any vision changes, and offers no additional complaints. Patient currently states she has nausea and some lower back pain. No additional medical complaints. PMD: [facility] Past Medical History Reviewed: Historical Data, Nursing Documentation, Vital Signs Vital Signs: Last Vital Signs Temp 96.1 F L 04/23/18 08:02 Pulse 80 04/23/18 08:02 Resp 16 04/23/18 08:02 BP 136/85 04/23/18 08:02 Pulse Ox 100 04/23/18 08:02 - Medical History PMH: Depression, Fibromyalgia, HTN, Multiple Sclerosis, Chronic Pain (chronic leg weakness) Denies: Chronic Kidney Disease - Surgical History Surgical History: Hernia Repair - Family History Family History: States: No Known Family Hx - Living Arrangements Living Arrangements: Other (long-term) - Social History Current smoker - smoking cessation education provided: No Alcohol: None Drugs: Denies - Immunization History Hx Tetanus Toxoid Vaccination: No Hx Influenza Vaccination: No Hx Pneumococcal Vaccination: No - Home Medications Home Medications: Ambulatory Orders Medication Instructions Recorded Enalapril Maleate [Vasotec] 5 mg PO DAILY 03/01/18 Gabapentin [Neurontin] 300 mg PO BID 03/01/18 Oseltamivir Phosphate [Tamiflu] 75 mg PO BID 5 Days capsule 03/19/18 Meclizine [Meclizine*] 25 mg PO Q6 PRN #30 tab 04/23/18 - Allergies Allergies/Adverse Reactions: Allergies Allergy/AdvReac Type Severity Reaction Status Date / Time latex Allergy ANAPHYLAXIS Verified 03/25/18 19:16 strawberry Allergy ANAPHYLAXIS Verified 03/25/18 19:16 Review of Systems ROS Statement: Except As Marked, All Systems Reviewed And Found Negative Constitutional: Negative for: Fever, Chills Eyes: Negative for: Vision Change Cardiovascular: Negative for: Chest Pain Respiratory: Negative for: Shortness of Breath Gastrointestinal: Positive for: Nausea. Negative for: Vomiting Neurological: Positive for: Dizziness Physical Exam - Reviewed Nursing Documentation Reviewed: Yes Vital Signs Reviewed: Yes - Physical Exam Appears: Positive for: No Acute Distress Head Exam: Positive for: ATRAUMATIC, NORMAL INSPECTION, NORMOCEPHALIC Skin: Positive for: Normal Color, Warm Eye Exam: Positive for: Normal appearance, EOMI, PERRL. Negative for: Nystagmus ENT: Positive for: Other (moist mucosa) Neck: Positive for: Normal, Painless ROM, Supple Cardiovascular/Chest: Positive for: Regular Rate, Rhythm, Chest Non Tender Respiratory: Positive for: Normal Breath Sounds. Negative for: Rales, Rhonchi, Wheezing Pulses-Radial (L): 2+ Pulses-Radial (R): 2+ Gastrointestinal/Abdominal: Positive for: Soft. Negative for: Tenderness Back: Positive for: Other (diffuse low back tenderness). Negative for: L CVA Tenderness, R CVA Tenderness, Vertebral Tenderness Extremity: Positive for: Normal ROM (FROM of all extremities), Other (5/5 motor strength). Negative for: Pedal Edema, Calf Tenderness, Deformity Neurologic/Psych: Positive for: Alert, Oriented, Gait (unable to assess). Negative for: Motor/Sensory Deficits - Laboratory Results Result Diagrams: 04/23/18 09:05 04/23/18 09:05 - ECG ECG: Positive for: Interpreted By Me, Viewed By Me ECG Rhythm: Positive for: Normal QRS, Normal ST Segment, Sinus Rhythm. Negative for: ST/T Changes Rate: 70 O2 Sat by Pulse Oximetry: 100 (RA) Pulse Ox Interpretation: Normal - Progress Re-evaluation Time: 12:18 Condition: Re-examined, Improved Medical Decision Making Medical Decision Making: Impression: Dizziness, fall Differential: Vertigo: BPPV vs. posterior cerebral Cardiac arrhythmia Anemia UTI Residual neurological changes due to MS Plan: -- Labs -- CT Head -- Meclizine 25mg PO 0920 CXR FINDINGS: LUNGS: No acute cardiopulmonary disease appreciated. PLEURA: No significant pleural effusion identified, no pneumothorax apparent. CARDIOVASCULAR: No aortic atherosclerotic calcification present. Normal cardiac size. No pulmonary vascular congestion. OSSEOUS STRUCTURES: No significant abnormalities. VISUALIZED UPPER ABDOMEN: Normal. OTHER FINDINGS: None. IMPRESSION: No interval acute cardiopulmonary disease appreciated. 1100 CT Head FINDINGS: HEMORRHAGE: No intracranial hemorrhage. BRAIN: No mass effect or edema. Stable low-attenuation areas adjacent to the left lateral ventricle. VENTRICLES: Unremarkable. No hydrocephalus. CALVARIUM: Unremarkable. PARANASAL SINUSES: Unremarkable as visualized. No significant inflammatory changes. MASTOID AIR CELLS: Unremarkable as visualized. No inflammatory changes. OTHER FINDINGS: None. IMPRESSION: No acute intracranial abnormalities. No significant findings to account for the clinical presentation. No significant interval change compared to the prior examination(s). Patient pending ambulation. Scribe Attestation: Documented by Earline Verma acting as a scribe for Ever Larson MD Provider Attestation: All medical record entries made by the Scribe were at my direction and personally dictated by me. I have reviewed the chart and agree that the record accurately reflects my personal performance of the history, physical exam, medical decision making, and the department course for this patient. I have also personally directed, reviewed, and agree with the discharge instructions and disposition. Disposition - Clinical Impression Clinical Impression: Dizziness - Patient ED Disposition Is Patient to be Admitted: No Doctor Will See Patient In The: Office Counseled Patient/Family Regarding: Studies Performed, Diagnosis - Disposition Referrals: [facility] [Outside] Disposition: Routine/Home Disposition Time: 12:19 Condition: GOOD Additional Instructions: JOSE THURMAN, thank you for letting us take care of you today. Your provider was Ever Larson MD and you were treated for FALL; DIZZY. The emergency medical care you received today was directed at your acute symptoms. If you were prescribed any medication, please fill it and take as directed. It may take several days for your symptoms to resolve. Return to the Emergency Department if your symptoms worsen, do not improve, or if you have any other problems. Please contact your doctor or call one of the physicians/clinics you have been referred to that are listed on the Patient Visit Information form that is included in your discharge packet. Bring any paperwork you were given at discharge with you along with any medications you are taking to your follow up visit. Our treatment cannot replace ongoing medical care by a primary care provider outside of the emergency department. Thank you for allowing the [facility] team to be part of your care today. If you had an X-Ray or CT scan: A Radiologist will review the ED reading if any change in treatment is needed we will contact you. If you had a blood, urine, or wound culture: It will take several days for the results, if any change in treatment is needed we will contact you. If you had an STI test: It will take 48 hours for the results. Please call after 1 week if you have not heard back. Prescriptions: Meclizine [Meclizine*] 25 mg PO Q6 PRN #30 tab PRN Reason: Dizziness Instructions: Vertigo (a Type of Dizziness)
[2018-04-23 09:26] LABS: BASO # 0.1 K/uL (0.0-0.2); BASO % 1.8 % (0.0-2.0); EOS # 0.1 K/uL (0.0-0.7); EOS % 1.4 % (0.0-4.0); HEMOGLOBIN 14.5 g/dL (12.0-16.0); LYMPH # 1.7 K/uL (1.0-4.3); LYMPH % 26.8 % (20.0-40.0); MEAN CELL VOLUME 88.2 fl (81.0-99.0); MEAN CORPUSCULAR HEMOGLOBIN 30.1 pg (27.0-31.0); MEAN CORPUSCULAR HGB CONC 34.1 g/dL (33.0-37.0); MEAN PLATELET VOLUME 8.6 fl (7.2-11.7); MONO # 0.6 K/uL (0.0-0.8); MONO % 8.7 % (0.0-10.0); NEUT # 3.9 K/uL (1.8-7.0); NEUT % 61.3 % (50.0-75.0); NRBC % 0.1 % (0.0-0.0); RBC 4.82 Mil/uL (3.80-5.20); RED CELL DISTRIBUTION WIDTH 13.3 % (11.5-14.5); WHITE BLOOD COUNT 6.3 K/uL (4.8-10.8)
[2018-04-23 09:35] LABS: BLOOD UREA NITROGEN 18 mg/dl (7-17); CALCIUM 9.6 mg/dL (8.4-10.2); GFR NON-AFRICAN AMERICAN > 60
--- NOTE | 2018-04-23 11:03 | CT ---
Date of service: 04/23/2018 PROCEDURE: CT HEAD WITHOUT CONTRAST. HISTORY: dizziness COMPARISON: 03/19/2018 CT head. 02/28/2018 MRI brain TECHNIQUE: Axial computed tomography images were obtained through the head/brain without intravenous contrast. Supplemental Coronal and Sagittal projections created and reviewed. Radiation dose: Total exam DLP = <inf_radiation_dlp> mGy-cm. This CT exam was performed using one or more of the following dose reduction techniques: Automated exposure control, adjustment of the mA and/or kV according to patient size, and/or use of iterative reconstruction technique. FINDINGS: HEMORRHAGE: No intracranial hemorrhage. BRAIN: No mass effect or edema. Stable low-attenuation areas adjacent to the left lateral ventricle. VENTRICLES: Unremarkable. No hydrocephalus. CALVARIUM: Unremarkable. PARANASAL SINUSES: Unremarkable as visualized. No significant inflammatory changes. MASTOID AIR CELLS: Unremarkable as visualized. No inflammatory changes. OTHER FINDINGS: None. IMPRESSION: No acute intracranial abnormalities. No significant findings to account for the clinical presentation. No significant interval change compared to the prior examination(s).
[2018-04-23 11:07] LABS: BARBITURATES, UR NEGATIVE (NEGATIVE); BENZODIAZEPINES, UR NEGATIVE (NEGATIVE); OPIATES, UR NEGATIVE (NEGATIVE); PHENCYCLIDINE, UR NEGATIVE (NEGATIVE)
--- NOTE | 2018-04-23 12:41 | CARD ---
APPROVED REPORT Date of service: 04/23/2018 EKG Measurement Heart [id number] <Conclusion> Normal sinus rhythm Normal ECG
[2018-04-23 12:47] VITALS: BP 130/72; PULSE 72; TEMP 97.7
== END 2018-04-23 12:47 | disposition home or self-care (01) ==
LOC: H.ER 07:59
DX: R42 Dizziness and giddiness (principal); Z86.59 Personal history of other mental and behavioral disorders; G35 Multiple sclerosis; G89.29 Other chronic pain; I10 Essential (primary) hypertension; M79.7 Fibromyalgia; W18.39XA Other fall on same level, initial encounter

== ENCOUNTER 2018-05-09 23:30 | Emergency (ER) | payer OTHER ==
[2018-05-09 23:31] VITALS: BMI 19.8
[2018-05-10 00:57] VITALS: O2SAT 100
[2018-05-10] MEDS ORDERED: Sodium Chloride 0.9% 1,000 ML IV STA (03:37)
--- NOTE | 2018-05-10 03:42 | ED PDOC ---
HPI: General Adult Time Seen by Provider: 05/10/18 03:28 Chief Complaint (Nursing): GI Problem Chief Complaint (Provider): vomiting, diarrhea History Per: Patient History/Exam Limitations: no limitations Onset/Duration Of Symptoms: Days (1) Current Symptoms Are (Timing): Still Present Additional Complaint(s): 52 y/o female presents for evaluation of vomiting and diarrhea x 1 day. Patient states while bent over on the toilet she tried to get up and slipped, and hit head on concrete. Patient thinks she may have lost consciousness. Denies fever, dizziness, extremity numbness/weakness, vision changes, neck pain, abdominal pain, urinary symptoms. Past Medical History Reviewed: Historical Data, Nursing Documentation, Vital Signs Vital Signs: Last Vital Signs Temp 98.1 F 05/10/18 00:54 Pulse 83 05/10/18 00:54 Resp 18 05/10/18 00:54 BP 110/65 05/10/18 00:54 Pulse Ox 100 05/10/18 00:54 - Medical History PMH: Depression, Fibromyalgia, HTN, Multiple Sclerosis, Chronic Pain (chronic leg weakness) Denies: Chronic Kidney Disease - Surgical History Surgical History: Hernia Repair - Family History Family History: States: Unknown Family Hx - Immunization History Hx Tetanus Toxoid Vaccination: No Hx Influenza Vaccination: No Hx Pneumococcal Vaccination: No - Home Medications Home Medications: Ambulatory Orders Medication Instructions Recorded Enalapril Maleate [Vasotec] 5 mg PO DAILY 03/01/18 Gabapentin [Neurontin] 300 mg PO BID 03/01/18 Oseltamivir Phosphate [Tamiflu] 75 mg PO BID 5 Days capsule 03/19/18 Meclizine [Meclizine*] 25 mg PO Q6 PRN #30 tab 04/23/18 Ondansetron ODT [Zofran ODT] 4 mg PO Q8 PRN #10 odt 05/10/18 - Allergies Allergies/Adverse Reactions: Allergies Allergy/AdvReac Type Severity Reaction Status Date / Time latex Allergy ANAPHYLAXIS Verified 05/10/18 00:54 strawberry Allergy ANAPHYLAXIS Verified 05/10/18 00:54 Review of Systems ROS Statement: Except As Marked, All Systems Reviewed And Found Negative Gastrointestinal: Positive for: Nausea, Vomiting, Diarrhea Physical Exam - Reviewed Nursing Documentation Reviewed: Yes Vital Signs Reviewed: Yes - Physical Exam Appears: Positive for: Well, Non-toxic, No Acute Distress Head Exam: Positive for: ATRAUMATIC, NORMAL INSPECTION, NORMOCEPHALIC Skin: Positive for: Normal Color Eye Exam: Positive for: Normal appearance, EOMI, PERRL ENT: Positive for: Normal ENT Inspection Cardiovascular/Chest: Positive for: Regular Rate, Rhythm Respiratory: Positive for: Normal Breath Sounds Gastrointestinal/Abdominal: Positive for: Normal Exam Back: Positive for: Normal Inspection Extremity: Positive for: Normal ROM Neurological/Psych: Positive for: Awake, Alert, Oriented (x3), Lethargic - Laboratory Results Result Diagrams: 05/10/18 04:24 05/10/18 04:24 - ECG O2 Sat by Pulse Oximetry: 100 - Progress ED Course And Treament: -upreg -urinalysis -cbc -cmp -lipase -CT head -IV NS bolus -IV zofran CT scan of the head. CLINICAL HISTORY: Head injury. TECHNIQUE: Multiple axial CT images were obtained through the brain without IV contrast material. Comparison: 04/23/2018. COMMENTS: There is normal configuration of sella turcica. There are no intra or extra- axial collections. There is no mass effect or midline shift. There is no evidence of hematoma formation. No hydrocephalus is present. The ventricles are symmetrical. No abnormal calcifications are present. There is diffuse age-appropriate cerebellar and cerebral atrophy with proportionally dilated ventricles and cortical sulci. There are bilateral periventricular and subcortical white matter hypolucencies compatible with mild chronic microvascular disease. Otherwise, no significant focal abnormalities are seen either in the posterior fossa or supratentorial compartment. IMPRESSION: 1. Age-appropriate cerebellar and cerebral atrophy. 2. Mild chronic microvascular disease. 3. No evidence of acute intracranial pathology Patient states she is feeling better on re-eval, tolerating PO Patient educated on findings, discharged with rx Zofran Advised increase fluid intake. [place] diet Follow up PMD within 2-3 days Return precautions given Disposition - Clinical Impression Clinical Impression: Gastroenteritis, Head injury - Patient ED Disposition Is Patient to be Admitted: No Counseled Patient/Family Regarding: Studies Performed, Diagnosis, Need For Followup, Rx Given - Disposition Disposition: Routine/Home Disposition Time: 05:36 Condition: IMPROVED Prescriptions: Ondansetron ODT [Zofran ODT] 4 mg PO Q8 PRN #10 odt PRN Reason: Nausea/Vomiting Instructions: Viral Gastroenteritis, Closed Head Injury
[2018-05-10 04:32] LABS: BASO % 0.4 % (0.0-2.0); EOS # 0.1 K/uL (0.0-0.7); EOS % 0.5 % (0.0-4.0); HEMOGLOBIN 15.7 g/dL (12.0-16.0); LYMPH # 0.3 K/uL (1.0-4.3); LYMPH % 2.5 % (20.0-40.0); MEAN CELL VOLUME 87.9 fl (81.0-99.0); MEAN CORPUSCULAR HEMOGLOBIN 30.7 pg (27.0-31.0); MEAN CORPUSCULAR HGB CONC 34.9 g/dL (33.0-37.0); MEAN PLATELET VOLUME 8.6 fl (7.2-11.7); MONO # 0.3 K/uL (0.0-0.8); NEUT # 10.2 K/uL (1.8-7.0); NEUT % 93.6 % (50.0-75.0); NRBC % 0.2 % (0.0-0.0); PLATELET COUNT 278 K/uL (130-400); RBC 5.13 Mil/uL (3.80-5.20); RED CELL DISTRIBUTION WIDTH 13.6 % (11.5-14.5); WHITE BLOOD COUNT 10.9 K/uL (4.8-10.8)
[2018-05-10 04:54] LABS: ALB/GLOB RATIO 1.2 (1.0-2.1); ALBUMIN 4.1 g/dL (3.5-5.0); ALT/SGPT < 6 U/L (9-52); AST/SGOT 17 U/L (14-36); BLOOD UREA NITROGEN 26 mg/dl (7-17); CALCIUM 9.8 mg/dL (8.4-10.2); GFR NON-AFRICAN AMERICAN > 60; LIPASE 36 U/L (23-300)
[2018-05-10 05:38] VITALS: BP 116/67; PULSE 89; RESP 15; TEMP 98.6
[2018-05-10 06:23] LABS: BANDS 3 % (0-2); LYMPHOCYTE 3 % (20-50); MONOCYTE 3 % (0-10); NEUTROPHIL 91 % (42-75); PLATELET ESTIMATE NORMAL (NORMAL); TOTAL CELLS COUNTED 100
--- NOTE | 2018-05-10 10:49 | CT ---
Date of service: 05/10/2018 PROCEDURE: CT HEAD WITHOUT CONTRAST. HISTORY: head injury COMPARISON: 04/23/2018. TECHNIQUE: Axial computed tomography images were obtained through the head/brain without intravenous contrast. Supplemental Coronal and Sagittal projections created and reviewed. Radiation dose: Total exam DLP = 786.12 mGy-cm. This CT exam was performed using one or more of the following dose reduction techniques: Automated exposure control, adjustment of the mA and/or kV according to patient size, and/or use of iterative reconstruction technique. FINDINGS: HEMORRHAGE: No intracranial hemorrhage. BRAIN: No mass effect or edema. Cortical and cerebellar atrophy, periventricular small vessel disease. VENTRICLES: Unremarkable. No hydrocephalus. CALVARIUM: Unremarkable. PARANASAL SINUSES: Unremarkable as visualized. No significant inflammatory changes. MASTOID AIR CELLS: Unremarkable as visualized. No inflammatory changes. OTHER FINDINGS: None. IMPRESSION: No acute intracranial abnormalities. No significant findings to account for the clinical presentation. No significant interval change compared to the prior examination(s). Concordant results (preliminary interpretation) provided by [facility]. Procedure Completed: 04:18. Preliminary Report: Interpreted and electronically signed: 04:38. Final Interpretation: 10:45.
== END 2018-05-10 06:26 | disposition home or self-care (01) ==
LOC: H.ER 23:30
DX: K52.9 Noninfective gastroenteritis and colitis, unspecified (principal); S09.90XA Unspecified injury of head, initial encounter; W19.XXXA Unspecified fall, initial encounter; Y92.89 Other specified places as the place of occurrence of the external cause; G35 Multiple sclerosis; I10 Essential (primary) hypertension; M79.7 Fibromyalgia
CPT/HCPCS: 70450; 80053; 83690; 85025; 99283; J2405; J7030